=== PATIENT | male | born 1950 | race Caucasian/White ===

== ENCOUNTER → 2023-12-29 10:06 | Outpatient (REF) | payer OTHER, SELFPAY | LOC: RCS 10:06 | PROVIDERS: ATTENDING PHYSICIAN Internal Medicine Cardiovascular Disease; FAMILY PHYSICIAN Family Medicine | DX: I35.0 Nonrheumatic aortic (valve) stenosis (principal) | CPT/HCPCS: 93306 ==

== ENCOUNTER → 2024-05-13 15:06 | Outpatient (REF) | payer OTHER, SELFPAY | LOC: RAD 15:06 | PROVIDERS: ATTENDING PHYSICIAN Internal Medicine Cardiovascular Disease; FAMILY PHYSICIAN Family Medicine | DX: I65.23 Occlusion and stenosis of bilateral carotid arteries (principal) | CPT/HCPCS: 93880 ==

== ENCOUNTER → 2024-07-05 10:33 | Outpatient (REF) | payer OTHER, SELFPAY | LOC: RCS 10:33 | PROVIDERS: ATTENDING PHYSICIAN Internal Medicine Cardiovascular Disease; FAMILY PHYSICIAN Family Medicine; REFERRING PHYSICIAN Family Medicine | DX: I35.0 Nonrheumatic aortic (valve) stenosis (principal) | CPT/HCPCS: 93306 ==

== ENCOUNTER 2024-11-20 16:52 | Outpatient (RCR) | payer OTHER, SELFPAY | END 2024-11-20 23:59 | disposition home or self-care (01) | LOC: CRHB 16:52 | PROVIDERS: ATTENDING PHYSICIAN Internal Medicine Cardiovascular Disease | DX: Z95.2 Presence of prosthetic heart valve (principal) | CPT/HCPCS: 93306; 93797; 93798 ==

== ENCOUNTER 2024-12-20 16:15 | Outpatient (RCR) | payer OTHER, SELFPAY | END 2024-12-20 23:59 | disposition home or self-care (01) | LOC: CRHB 16:15 | PROVIDERS: ATTENDING PHYSICIAN Internal Medicine Cardiovascular Disease | DX: Z95.2 Presence of prosthetic heart valve (principal) | CPT/HCPCS: 93797; 93798 ==

== ENCOUNTER 2024-12-27 01:53 | Emergency (ER) | payer OTHER, SELFPAY ==
[2024-12-27 01:57] VITALS: BP 103/66
[2024-12-27 02:28] LABS: % Basophils 0.1 % (0-2); % Eosinophils 1.8 % (0-6); % Immature Granulocytes 0.3 % (0-0.5); % Lymphocytes 13.9 % (20.5-51.1); % Monocytes 11.1 % (1.7-9.3); % Neutrophils 72.8 % (42.2-75.2); Absolute Eosinophils 0.1 10^3/uL (0-0.7); Absolute Lymphocytes 1.1 10^3/uL (1.2-3.4); Absolute Monocytes 0.8 10^3/uL (0.1-0.6); Absolute Neutrophils 5.5 10^3/uL (1.4-6.5); Hematocrit 38.4 % (39.0-52.0); Mean Corp Hgb Conc. 33.9 g/dL (33.0-37.0); Mean Corpuscular Hgb 31.7 pg (27.0-31.0); Mean Corpuscular Volume 93.7 fL (80.0-94.0); Mean Platelet Volume 9.7 fL (7.4-10.4); Nucleated Red Blood Cells % 0 % (-); Platelet Count 169 10^3/uL (130-400); Red Cell Dist. Width 13.6 % (11.5-14.5); White Blood Cell Count 7.6 10^3/uL (4.8-10.8)
[2024-12-27 02:50] LABS: ALT (SGPT) 15 U/L (0-50); AST (SGOT) 18 U/L (17-59); Albumin 4.1 g/dl (3.5-5.0); Alkaline Phosphatase 73 U/L (38-126); Blood Urea Nitrogen 23 mg/dl (9-20); Calcium 9.9 mg/dl (8.4-10.2); Carbon Dioxide 23 mmol/L (22-30); Chloride 111 mmol/L (98-107); Glucose 152 mg/dl (70-99); Potassium 4.1 mmol/L (3.5-5.1); Sodium 141 mmol/L (135-145); Total Bilirubin 0.5 mg/dl (0.2-1.3); Total Protein 6.7 g/dl (6.3-8.2); eGFR > 60.00
[2024-12-27 03:03] LABS: Troponin I < 0.012 ng/ml
--- NOTE | 2024-12-27 04:19 | ED.GENMED ---
History of Present Illness
General
Chief Complaint: Chest Pain
Source: patient
Exam Limitations: none
Time Seen by Provider: 12/27/24 04:14
Nursing documentation reviewed up to this point in time: agreed with
History of Present Illness
History of Present Illness:
74-year-old male presents to the emergency department with left-sided chest pain that began 2 days ago. He states that he also has associated shortness of breath. Patient denies any other chest pain. He states that he was traveling approximately
3 hours by car when he first developed the pain and dyspnea. Denies previous similar symptoms. Reports no fever or chills. Denies any upper chest pain. Denies abdominal pain. Patient states that the left-sided chest pain is intermittent in
nature. Patient states that the pain radiates to his left shoulder. Patient had valve replacement in September. He also had a incidental finding of a kidney tumor. Was followed at [facility] and told that for the time being they were not going to
operate. He has a follow-up appointment with oncology in March.
Past History
Past History
ED Past Medical History: CAD, GERD, HTN, Hypercholesterolemia, Valvular disease (Aortic stenosis), Psychiatric and Other
ED Past Surgical History: Orthopedic and Urological
Social History
Tobacco: Former smoker
Alcohol: Occasional
Drug: None
Personal:
Living: with family
Employment: Employed
Family History
Family History: Other (Mother with diabetes father with coronary disease and diabetes)
Review of Systems
Review of Systems
Allergies reviewed?: Yes
All Other Systems: ROS reviewed and negative except as documented in HPI and ROS
Constitutional: Reports no symptoms
EENT: Reports no symptoms
Respiratory: Reports trouble breathing
Cardiac: Reports chest pain
ABD/GI: Reports no symptoms
: Reports no symptoms
Musculoskeletal: Reports no symptoms
Skin: Reports no symptoms
Neurological: Reports no symptoms
Endocrine: Reports no symptoms
Hematologic/Lymphatic: Reports no symptoms
Psychiatric: Reports no symptoms
Phy Exam
General Physical Exam
General Presentation: well appearing and no apparent distress
General Skin: warm and dry
General Habitus: normal
General Mental: alert
General Hydration: appears well hydrated
ENT Exam
ENT Exam: EOMI, pharynx normal, neck supple and normocephalic
Eye Exam
Eye Exam: PERRL, cornea clear and conjunctiva normal
Cardiovascular Exam
Cardiovascular Exam: regular rate/rhythm, no edema, no murmur and normal peripheral pulses
Pulmonary Exam
Pulmonary Exam: lungs clear, no respiratory distress, no rales, no crackles, no rhonchi, no stridor, no wheezing and no cough
Gastrointestinal Exam
Gastrointestinal Exam: normal bowel sounds, non tender, soft, no organomegaly, no pulsatile mass and non distended
Neurological Exam
Neurological Exam: alert, oriented x3, no motor deficits and speech normal
Musculoskeletal Exam
Musculoskeletal Exam: full ROM and no edema
Skin Exam
Skin Exam: normal color, warm/dry, no rash and no petechia
Psychiatric Exam
Psychiatric Exam: normal mood/affect
Scores
Heart Score for Chest Pain Patients
STEMI patient?: Not applicable
Course
Orders/Labs/Results
Orders:
Orders
12/27/24 01:54
EKG [Electrocardiogram (*1)] Urgent
Reason for Study: Chest Pain
EKG- Treatment ONCE
12/27/24 02:15
Complete Blood Count/With Diff Urgent
Comprehensive Metabolic Panel Urgent
Troponin I Urgent
12/27/24 04:31
CT Chest PE Study Urgent
Comment:
Reason For Exam: lefft cp, dyspnea
12/27/24 04:41
NT-proBNP Urgent
Comment: ADDED
Troponin I Urgent
Abnormal Lab Results
12/27/24
02:15
RBC 4.10 L 10^6/uL
(4.70-6.10)
Hct 38.4 L %
(39.0-52.0)
MCH 31.7 H pg
(27.0-31.0)
Absolute Lymphs (auto) 1.1 L 10^3/uL
(1.2-3.4)
Absolute Monos (auto) 0.8 H 10^3/uL
(0.1-0.6)
Lymphocytes % 13.9 L %
(20.5-51.1)
Monocytes % 11.1 H %
(1.7-9.3)
Chloride 111 H mmol/L
(98-107)
BUN 23 H mg/dl
(9-20)
Glucose 152 H mg/dl
(70-99)
12/27/24 02:15
12/27/24 02:15
Vital Signs
Initial and Last Documented VS:
Initial Vital Signs
Temp Pulse Resp BP Pulse Ox
98.5 F 94 16 103/66 94
12/27/24 01:57 12/27/24 01:57 12/27/24 01:57 12/27/24 01:57 12/27/24 01:57
Last Documented Vital Signs
Temp Pulse Resp BP Pulse Ox
98.5 F 82 16 136/81 99
12/27/24 06:54 12/27/24 06:54 12/27/24 06:54 12/27/24 06:54 12/27/24 06:54
*EKG
Interpreted by ED Provider?: Yes
Interpretation: normal
Heart Rate: 92
Rate: normal
Rhythm: sinus
[place]: normal axis
Interval: normal interval
QRS Pattern: normal QRS
Ischemia: no ischemia
*Critical Care Note
Total Time (30-74mins, 75-104mins- exclusive of procedures): Not Applicable
Update Note
Update Note:
NAME: DANIE BANG
DATE OF EXAM: 12/27/2024
Patient No: [id number]
Physician: ESPERANZA^Isabella
Date of : 1950
Past Medical History (entered by Technologist):
Reason For Exam (entered by Technologist):
Other Notes (entered by Technologist): Chest pain, lt shoulder pain
Additional Information (per [facility] Radiologist): Chest and left shoulder pain
CTA chest
IMPRESSION:
No evidence of PE or acute aortic pathology
Pulmonary artery contrast opacification is adequate though not excellent with minimal motion unsharpness further degrading exam sensitivity for small PE
Small left pleural effusion, in the setting of pleuritic left-sided chest pain consider pleurisy
As precaution correlate with BNP to exclude signs of fluid overload
Small pericardial effusion
No acute process limited upper abdomen
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
Mild airway debris along the left side of the trachea series 404 image 47
Results transmitted at 5:59 AM Eastern time
ED Attending Note
-
Portions of this chart may have been created with voice recognition software.� Occasional wrong word or��sound alike� substitutions may have occurred due to the inherent limitations of voice recognition software.
Discharge Plan
Departure
Patient Disposition: Home (Routine Discharge)
Date of Disposition: 12/27/24
Time of Disposition: 06:44
Patient with high blood pressure during this ER visit?: Yes
Discharge Problem:
Pleurisy, Chest pain
Instructions: Chest Pain NON-[facility] Delivery Director Follow Up, Pleurisy
Prescriptions:
New
diclofenac sodium 75 mg tablet,delayed release (DR/EC)
75 mg PO BID Qty: 10 0RF
No Action
yerdcjhv-subo-qvcdss-hyalur ac 1 CAP capsule
2 cap PO DAILY
alprazolam 0.25 MG tablet
0.25 mg PO Q8HPRN PRN (Reason: ANXIETY)
Patient Comments:
07/06/2023: last filled 06/27/23, 30 tabs for 10 days from [facility]
Centrum Silver 1 EACH tablet
1 ea PO DAILY
coenzyme Z10-[id number] E [Co Q-10 (with Vit E)] 1 EACH capsule
1 ea PO DAILY
pantoprazole 40 MG tablet,delayed release (DR/EC)
40 mg PO DAILY Qty: 30 11RF
Rx Instructions:
Protonix replaces Nexium
aspirin 81 MG tablet,chewable
81 mg PO DAILY Qty: 30 0RF
Rx Instructions:
Reduce aspirin to 81 mg daily
lisinopril 5 MG tablet
2.5 mg PO HS
hydrocodone-acetaminophen 5-325 mg tablet
0.5 tab PO TID
Patient Comments:
07/06/2023: last filled 06/12/23, 45 tabs for 30 days from [facility]
dqlcaxlwgv-dedcivchpofqf-coiq 50-325-40 mg tablet
1 tab PO Q4H PRN (Reason: headache)
Patient Comments:
07/06/2023: last filled 06/27/23, 30 tabs for 5 days from [facility]
ezetimibe 10 mg tablet
10 mg PO HS
pregabalin 75 mg capsule
75 mg PO DAILY@1700
Patient Comments:
07/06/2023: last filled 06/26/23, 90 tabs for 30 days from [facility]
Rx Instructions:
Pt is tapering off
omega 6-cfg-bpj-fish oil [Fish Oil] 1,200 (144-216) mg Capsule
1 cap PO DAILY
vilazodone 20 mg tablet
20 mg PO DAILY@1700
atorvastatin 80 MG tablet
80 mg PO HS
Pulmicort Flexhaler 90 mcg/actuation aerosol powdr breath activated
1 inh inhalation Q12H Qty: 1 0RF
hydrocodone-acetaminophen 5-325 mg tablet
1 tab PO Q8H PRN (Reason: Pain) Qty: 10 0RF
Referrals:
Mariza Escobar, DO [Family Provider, Family Practice]
Interventions
Interventions:
*Risk Screen - Suicide Last Done: 12/27/24 01:57
*General Assessment Last Done: 12/27/24 06:54
*Neglect/Abuse Screening Last Done: 12/27/24 01:57
*ED- Fall Risk Assessment Last Done: 12/27/24 01:57
*ED COVID-19 Vaccine History Last Done: 12/27/24 01:57
*Nursing Disposition Last Done: 12/27/24 06:54
ED- Cardiac Assessment Last Done: 12/27/24 03:30
Discharge Date and Time
Discharge Date/Time: 12/27/24 06:58
Print Language: SLOVAK
[2024-12-27 05:25] LABS: Troponin I < 0.012 ng/ml
[2024-12-27 06:54] VITALS: BP 136/81
[2024-12-27 06:55] LABS: NT-proBNP 246 pg/ml
== END 2024-12-27 06:58 | disposition home or self-care (01) ==
LOC: EMR 01:53
PROVIDERS: EMERGENCY PHYSICIAN Student in an Organized Health Care Education/Training Program; FAMILY PHYSICIAN Family Medicine
DX: R09.1 Pleurisy (principal); R07.89 Other chest pain; I25.10 Atherosclerotic heart disease of native coronary artery without angina pectoris; K21.9 Gastro-esophageal reflux disease without esophagitis; E78.00 Pure hypercholesterolemia, unspecified; I10 Essential (primary) hypertension; I35.0 Nonrheumatic aortic (valve) stenosis; Z82.49 Family history of ischemic heart disease and other diseases of the circulatory system; Z83.3 Family history of diabetes mellitus; Z87.891 Personal history of nicotine dependence; Z95.2 Presence of prosthetic heart valve; Z95.5 Presence of coronary angioplasty implant and graft
CPT/HCPCS: 99284; 71275; 80053; 83880; 84484; 85025; 93005; Q9967

== ENCOUNTER 2025-01-20 16:47 | Outpatient (RCR) | payer OTHER, SELFPAY | END 2025-01-20 23:59 | disposition home or self-care (01) | LOC: CRHB 16:47 | PROVIDERS: ATTENDING PHYSICIAN Internal Medicine Cardiovascular Disease; FAMILY PHYSICIAN Family Medicine | DX: Z95.2 Presence of prosthetic heart valve (principal) | CPT/HCPCS: 93797; 93798 ==

== ENCOUNTER 2025-01-27 16:20 | Outpatient (RCR) | payer OTHER, SELFPAY | END 2025-01-27 17:33 | disposition home or self-care (01) | LOC: CRHB 16:20 | PROVIDERS: ATTENDING PHYSICIAN Internal Medicine Cardiovascular Disease | DX: Z95.3 Presence of xenogenic heart valve (principal); I48.91 Unspecified atrial fibrillation | CPT/HCPCS: 93797; 93798 ==

== ENCOUNTER 2025-02-08 20:34 | Emergency (ER) | payer OTHER, SELFPAY ==
[2025-02-08 20:49] VITALS: BP 130/88
[2025-02-08 21:30] LABS: ALT (SGPT) 21 U/L (0-50); AST (SGOT) 22 U/L (17-59); Albumin 4.3 g/dl (3.5-5.0); Alkaline Phosphatase 65 U/L (38-126); Blood Urea Nitrogen 36 mg/dl (9-20); Calcium 9.6 mg/dl (8.4-10.2); Carbon Dioxide 27 mmol/L (22-30); Chloride 105 mmol/L (98-107); Glucose 92 mg/dl (70-99); Potassium 4.5 mmol/L (3.5-5.1); Sodium 136 mmol/L (135-145); Total Protein 7.1 g/dl (6.3-8.2); eGFR 58.01
[2025-02-08 21:55] LABS: Hematocrit 38.4 % (39.0-52.0); Hemoglobin 12.9 g/dL (13.0-18.0); Mean Corp Hgb Conc. 33.6 g/dL (33.0-37.0); Mean Corpuscular Volume 93.2 fL (80.0-94.0); Nucleated Red Blood Cells % 0 % (-); Platelet Count 157 10^3/uL (130-400); Red Cell Dist. Width 15.0 % (11.5-14.5)
[2025-02-08 22:43] VITALS: BP 150/89; BMI 33.0
[2025-02-08 23:00] VITALS: BP 144/91
[2025-02-09] MEDS: REGLAN 10 MG IV (00:13)
[2025-02-09] MEDS: PEPCID 20 MG IV (00:13)
[2025-02-09 00:40] LABS: Magnesium 2.1 mg/dl (1.6-2.3)
[2025-02-09 00:57] LABS: Troponin I < 0.012 ng/ml
[2025-02-09] MEDS: TYLENOL 1000 MG PO (00:57)
[2025-02-09 01:00] VITALS: BP 139/91
--- NOTE | 2025-02-09 01:46 | ED.GENMED ---
History of Present Illness
General
Chief Complaint: Headache
Source: patient and spouse
Exam Limitations: none
Time Seen by Provider: 02/08/25 22:43
Nursing documentation reviewed up to this point in time: agreed with
History of Present Illness
History of Present Illness:
74-year-old male past medical history of aortic stenosis, CAD, GERD presenting to the emergency department today with concerns of headache fatigue over the past 2 weeks or so. Denies any rashes any specific upper respiratory symptoms no specific
chest pain or shortness of breath. No leg swelling no nausea vomiting. Denies any numbness or weakness.
Past History
Past History
ED Past Medical History: CAD, GERD, HTN, Hypercholesterolemia, Valvular disease (Aortic stenosis), Psychiatric and Other
ED Past Surgical History: Orthopedic and Urological
Social History
Tobacco: Former smoker
Alcohol: Occasional
Drug: None
Personal:
Living: with family
Employment: Employed
Family History
Family History: Other (Mother with diabetes father with coronary disease and diabetes)
Review of Systems
Review of Systems
Allergies reviewed?: Yes
All Other Systems: ROS reviewed and negative except as documented in HPI and ROS
Phy Exam
Physical Exam
Physical Exam:
GENERAL: Alert , in no apparent distress
EYE: pupils equal and reactive
NECK: Supple, no significant adenopathy.
ENT: o/p clr, mmm.
CARDIAC: Regular rate and rhythm .
LUNGS: Clear breath sounds bilaterally, no acute respiratory distress, no wheezes/rales/rhonchi
ABDOMEN: Soft, without focal tenderness, no r/g, no cvat
NEUROLOGICAL: Alert and oriented, no focal neuro deficits
SKIN: Warm and dry, skin intact.
MUSCULOSKELETAL: No edema, well perfused.
PSYCH: Normal and appropriate interaction.
Course
Orders/Labs/Results
Orders:
Orders
02/08/25 20:54
EKG [Electrocardiogram (*1)] Urgent
Reason for Study: Fatigue / Weakness
02/08/25 20:[address] [CT Head W/o Iv Contrast] Urgent
Comment:
Reason For Exam: headache
EKG- Treatment ONCE
02/08/25 21:06
Complete Blood Count/With Diff Urgent
Comprehensive Metabolic Panel Urgent
Lyme Progressive Urgent
Comment: ADD ON
Magnesium Urgent
Comment: ADD ON
TSH Reflex To Free T4 Urgent
Comment: ADD ON
02/08/25 23:13
Add On- LAB Urgent
Tests Added?: Lyme progressive
02/09/25 00:06
Famotidine [Pepcid] 20 mg IV NOW STA
Metoclopramide [Reglan] 10 mg IV NOW STA
Chest [CR Chest - 2 Views ] Urgent
Comment:
Reason For Exam: sob
02/09/25 00:07
Add On- LAB Urgent
Tests Added?: magnesium, tsh free t4
02/09/25 00:19
BNP [NT-proBNP] Urgent
Troponin I Urgent
02/09/25 00:56
Acetaminophen [Tylenol] 1,000 mg .ROUTE .STK-MED ONE
02/09/25 00:57
Acetaminophen [Tylenol] 1,000 mg PO NOW STA
Abnormal Lab Results
02/08/25
21:06
RBC 4.12 L 10^6/uL
(4.70-6.10)
Hgb 12.9 L g/dL
(13.0-18.0)
Hct 38.4 L %
(39.0-52.0)
MCH 31.3 H pg
(27.0-31.0)
RDW 15.0 H %
(11.5-14.5)
Absolute Monos (auto) 0.7 H 10^3/uL
(0.1-0.6)
Monocytes % 9.6 H %
(1.7-9.3)
BUN 36 H mg/dl
(9-20)
02/08/25 21:06
02/08/25 21:06
Vital Signs
Initial and Last Documented VS:
Initial Vital Signs
Temp Pulse Resp BP Pulse Ox
98.4 F 77 18 130/88 95
02/08/25 20:49 02/08/25 20:49 02/08/25 20:49 02/08/25 20:49 02/08/25 20:49
Last Documented Vital Signs
Temp Pulse Resp BP Pulse Ox
98.4 F 73 14 144/91 97
02/08/25 20:49 02/09/25 00:54 02/09/25 00:54 02/08/25 23:00 02/09/25 00:15
MDM/Problems Addressed
MDM/Problems Addressed:
74-year-old male presenting to the emergency department today with concerns of generalized weakness fatigue and headache over the past 2 weeks. Normal neurologic evaluation on arrival normal vital signs EKG without emergent findings head CT
negative labs unremarkable troponin negative. No signs of any emergent process patient generally well-appearing no signs of decompensated heart failure advised for close outpatient follow-up otherwise return precautions given.
*Pulse Oximetry
SaO2: 97
Oxygen Mode of Delivery: Room air
Patient hypoxic: no (97)
*Critical Care Note
Total Time (30-74mins, 75-104mins- exclusive of procedures): Not Applicable
ED Attending Note
-
Portions of this chart may have been created with voice recognition software.� Occasional wrong word or��sound alike� substitutions may have occurred due to the inherent limitations of voice recognition software.
Discharge Plan
Departure
Patient Disposition: Home (Routine Discharge)
Date of Disposition: 02/09/25
Time of Disposition: 01:48
Patient with high blood pressure during this ER visit?: No
Condition: Good
Covid-19: Not Applicable
Discharge Problem:
Headache, Fatigue
Instructions: Headache, Adult (DC), *DCA Heart Failure Instructions
Prescriptions:
No Action
ccpftyhk-grqe-eexawh-hyalur ac 1 CAP capsule
2 cap PO DAILY
alprazolam 0.25 MG tablet
0.25 mg PO Q8HPRN PRN (Reason: ANXIETY)
Patient Comments:
07/06/2023: last filled 06/27/23, 30 tabs for 10 days from [facility]
Centrum Silver 1 EACH tablet
1 ea PO DAILY
coenzyme T02-mhbyctx E [Co Q-10 (with Vit E)] 1 EACH capsule
1 ea PO DAILY
pantoprazole 40 MG tablet,delayed release (DR/EC)
40 mg PO DAILY Qty: 30 11RF
Rx Instructions:
Protonix replaces Nexium
aspirin 81 MG tablet,chewable
81 mg PO DAILY Qty: 30 0RF
Rx Instructions:
Reduce aspirin to 81 mg daily
lisinopril 5 MG tablet
2.5 mg PO HS
hydrocodone-acetaminophen 5-325 mg tablet
0.5 tab PO TID
Patient Comments:
07/06/2023: last filled 06/12/23, 45 tabs for 30 days from [facility]
jlclgjyfdc-vcgyugbcgmtze-dgwr 50-325-40 mg tablet
1 tab PO Q4H PRN (Reason: headache)
Patient Comments:
07/06/2023: last filled 06/27/23, 30 tabs for 5 days from [facility]
ezetimibe 10 mg tablet
10 mg PO HS
pregabalin 75 mg capsule
75 mg PO DAILY@1700
Patient Comments:
07/06/2023: last filled 06/26/23, 90 tabs for 30 days from [facility]
Rx Instructions:
Pt is tapering off
omega 1-pfh-oly-fish oil [Fish Oil] 1,200 (144-216) mg Capsule
1 cap PO DAILY
vilazodone 20 mg tablet
20 mg PO DAILY@1700
atorvastatin 80 MG tablet
80 mg PO HS
Pulmicort Flexhaler 90 mcg/actuation aerosol powdr breath activated
1 inh inhalation Q12H Qty: 1 0RF
hydrocodone-acetaminophen 5-325 mg tablet
1 tab PO Q8H PRN (Reason: Pain) Qty: 10 0RF
diclofenac sodium 75 mg tablet,delayed release (DR/EC)
75 mg PO BID Qty: 10 0RF
Referrals:
Mariza Escobar DO [Family Provider, Family Practice]
Activity Restrictions/Additional Instructions:
You came to the emergency department today with concerns of headache and fatigue over the past few weeks. Here you had a reassuring assessment. Please follow closely as an outpatient. Return for any worsening, new or concerning symptoms.
Interventions
Interventions:
*Risk Screen - Suicide Last Done: 02/08/25 20:49
*General Assessment Last Done: 02/08/25 20:49
*ED- Fall Risk Assessment Last Done: 02/08/25 20:49
*ED COVID-19 Vaccine History Last Done: 02/08/25 20:49
ED- Neurological Assessment Last Done: 02/08/25 22:44
Discharge Date and Time
Print Language: KAZAKH
[2025-02-09 02:00] VITALS: BP 143/84
[2025-02-09 02:20] VITALS: BP 143/84
== END 2025-02-09 02:21 | disposition home or self-care (01) ==
LOC: EMR 20:34
PROVIDERS: Emergency Medicine; Physician Assistant; EMERGENCY PHYSICIAN Emergency Medicine; FAMILY PHYSICIAN Family Medicine
DX: R51.9 Headache, unspecified (principal); R53.1 Weakness; R53.83 Other fatigue; I35.0 Nonrheumatic aortic (valve) stenosis; I25.10 Atherosclerotic heart disease of native coronary artery without angina pectoris; I10 Essential (primary) hypertension; E78.00 Pure hypercholesterolemia, unspecified; K21.9 Gastro-esophageal reflux disease without esophagitis; Z79.82 Long term (current) use of aspirin; Z85.528 Personal history of other malignant neoplasm of kidney; Z87.442 Personal history of urinary calculi; Z87.891 Personal history of nicotine dependence; Z88.2 Allergy status to sulfonamides; Z88.8 Allergy status to other drugs, medicaments and biological substances
CPT/HCPCS: 99285; 96374; 96375; 70450; 71046; 80053; 83735; 83880; 84443; 84484; 85025; 86618; 93005

== ENCOUNTER 2025-03-24 17:05 | Emergency (ER) | payer OTHER, SELFPAY ==
[2025-03-24 17:13] VITALS: BP 113/70
--- NOTE | 2025-03-24 19:25 | ED.GENMED ---
History of Present Illness
General
Chief Complaint: Chest Problem
Source: patient and spouse
Time Seen by Provider: 03/24/25 18:58
History of Present Illness
History of Present Illness:
This patient is a 74-year-old male whose had persistent symptoms for the last 2 months concurrent with his diagnosis of Lyme disease. He describes persistent headaches, fatigue, intermittent nausea, and generally feeling not well. He has seen his
primary care doctor in follow-up, and completed 28-day course of doxycycline approximately 2 weeks ago. He had subsequent testing including parasite smear, additional tickborne illness testing, mono testing, 'autoimmune disease testing, all of
which were unremarkable. Of note, patient has a history of kidney cancer which is considered slow-growing and he is due to have extracted in June. He presents today because he developed discomfort along the left side of his lower chest and
also across his back on Monday morning. This is not sudden in onset, and is extremely similar to when he was diagnosed with 'pleurisy' in the past. He says that his exactly the same. He does not feel breathless or short of breath, feverish,
diaphoretic, dizzy. He denies chest pressure. He denies hemoptysis or leg swelling. Patient has had a recent URI.
Past History
Past History
ED Past Medical History: CAD, GERD, HTN, Hypercholesterolemia, Valvular disease (Aortic stenosis), Psychiatric and Other (Lyme disease)
ED Past Surgical History: Cardiac, Orthopedic and Urological
Social History
Tobacco: Former smoker
Alcohol: Occasional
Drug: None
Personal:
Living: with family
Employment: Employed
Family History
Family History: Other (Mother with diabetes father with coronary disease and diabetes)
Phy Exam
Physical Exam
Physical Exam:
GENERAL: Alert , in no apparent distress
EYE: pupils equal and reactive
NECK: Supple, no significant adenopathy.
ENT: o/p clr, mmm.
CARDIAC: Regular rate and rhythm .
LUNGS: Clear breath sounds bilaterally, no acute respiratory distress, no wheezes/rales/rhonchi
ABDOMEN: Soft, without focal tenderness, no r/g, no cvat
NEUROLOGICAL: Alert and oriented, no focal neuro deficits
SKIN: Warm and dry, skin intact.
MUSCULOSKELETAL: No edema, well perfused.
PSYCH: Normal and appropriate interaction.
Course
Orders/Labs/Results
Orders:
Orders
03/24/25 17:06
ECG [Electrocardiogram (*1)] Urgent
Reason for Study: Chest Pain
EKG- Treatment ONCE
03/24/25 19:24
0.9% Sodium Chloride 500 ml [Nss] 500 ml IV 500 mls/hr
03/24/25 19:25
Cardiac Monitoring- Treatment ONCE
03/24/25 19:33
Complete Blood Count/No Diff Urgent
Comprehensive Metabolic Panel Urgent
D-Dimer Urgent
Troponin I Urgent
03/24/25 19:47
Ketorolac [Toradol] 15 mg IV NOW STA
03/24/25 20:28
CT Chest PE Study Urgent
Comment:
Reason For Exam: l sdied pain
Abnormal Lab Results
03/24/25
19:33
RBC 4.10 L 10^6/uL
(4.70-6.10)
MCV 95.1 H fL
(80.0-94.0)
MCH 32.2 H pg
(27.0-31.0)
RDW 15.6 H %
(11.5-14.5)
D-Dimer 2.69 H ug/mlFEU
(0.00-0.50)
Chloride 108 H mmol/L
(98-107)
BUN 25 H mg/dl
(9-20)
Glucose 108 H mg/dl
(70-99)
03/24/25 19:33
03/24/25 19:33
Vital Signs
Initial and Last Documented VS:
Initial Vital Signs
Temp Pulse Resp BP Pulse Ox
98.6 F 105 16 113/70 96
03/24/25 17:13 03/24/25 17:13 03/24/25 17:13 03/24/25 17:13 03/24/25 17:13
Last Documented Vital Signs
Temp Pulse Resp BP Pulse Ox
98.6 F 93 16 145/88 95
03/24/25 17:13 03/24/25 21:15 03/24/25 21:15 03/24/25 21:11 03/24/25 21:15
*Pulse Oximetry
SaO2: 98
Oxygen Mode of Delivery: Room air
Patient hypoxic: no
*Critical Care Note
Total Time (30-74mins, 75-104mins- exclusive of procedures): Not Applicable
Update Note
Update Note:
Patient presents to the Emergency Department with ___multiple complaints for the last 2 months but most recently 2 to 3 days of pleuritic left-sided chest and back pain
Number and Complexity of Problems Addressed at the Encounter
� Chronic conditions affecting care:
� Acute Exacerbation and/or Progression of Chronic Illness:
� Differential Diagnosis includes: But not limited to musculoskeletal pain, PE, pleurisy, pneumonia, etc. etc.
Amount and/or Complexity of Data to be Reviewed and Analyzed
� I performed an independent evaluation of and my interpretation is:
EKG: Read by me, sinus tachycardia, normal axis, normal intervals, no acute ischemia
CT:. No evidence of central or segmental pulmonary embolism.
2. Small pericardial effusion which is new from recent prior imported CT.
3. Trace left pleural effusion with left basilar atelectasis.
Xrays:
Laboratory Studies: Elevated D-dimer which prompted CAT scan to rule out PE. Normal white blood cell count hemoglobin and platelets, troponin within normal limits
Other:
� Review of other/old records reveals:
� Clinical information was obtained by an independent historian:
� Prescriptions/Medications Considered but not given:
� Further testing considered but not performed:
Risk of Complications and/or Morbidity or Mortality of Patient Management
� Social determinants of health affecting care:
� Discussion with other providers (PCP, Hospitalists, Consultants, etc):
� Escalation of care including admission/observation vs risk of discharge considered: Long discussion with patient and patient remains comfortable here and in fact took a nap. Clinically highly suspect pleurisy as a cause
of his symptoms given no PE seen, no pneumonia, significant pleural effusion, etc. etc. Patient has had other symptoms that have been more longstanding for the last 2 months and is unclear if the small pericardial effusion and pleural effusion are
related or not. He is trying to get follow-up with infectious disease and I gave him our contact information for that. I also gave him a copy of his CAT scan with recommendation to bring this to his appointment for follow-up
ED Attending Note
-
Portions of this chart may have been created with voice recognition software.� Occasional wrong word or��sound alike� substitutions may have occurred due to the inherent limitations of voice recognition software.
Discharge Plan
Departure
Patient Disposition: Home (Routine Discharge)
Date of Disposition: 03/24/25
Time of Disposition: 22:18
Patient with high blood pressure during this ER visit?: Yes
Condition: Good
Discharge Problem:
Pleurisy
Instructions: BLOOD PRESSURE, Pleurisy
Prescriptions:
No Action
xvaqaktr-tehj-pzospb-hyalur ac 1 CAP capsule
2 cap PO DAILY
alprazolam 0.25 MG tablet
0.25 mg PO Q8HPRN PRN (Reason: ANXIETY)
Patient Comments:
07/06/2023: last filled 06/27/23, 30 tabs for 10 days from [facility]
Centrum Silver 1 EACH tablet
1 ea PO DAILY
coenzyme [id number] E [Co Q-10 (with Vit E)] 1 EACH capsule
1 ea PO DAILY
pantoprazole 40 MG tablet,delayed release (DR/EC)
40 mg PO DAILY Qty: 30 11RF
Rx Instructions:
Protonix replaces Nexium
aspirin 81 MG tablet,chewable
81 mg PO DAILY Qty: 30 0RF
Rx Instructions:
Reduce aspirin to 81 mg daily
lisinopril 5 MG tablet
2.5 mg PO HS
hydrocodone-acetaminophen 5-325 mg tablet
0.5 tab PO TID
Patient Comments:
07/06/2023: last filled 06/12/23, 45 tabs for 30 days from [facility]
vtwtbywcuq-coknfmbaetafa-dgob 50-325-40 mg tablet
1 tab PO Q4H PRN (Reason: headache)
Patient Comments:
07/06/2023: last filled 06/27/23, 30 tabs for 5 days from [facility]
ezetimibe 10 mg tablet
10 mg PO HS
pregabalin 75 mg capsule
75 mg PO DAILY@1700
Patient Comments:
07/06/2023: last filled 06/26/23, 90 tabs for 30 days from [facility]
Rx Instructions:
Pt is tapering off
omega 0-suo-ttn-fish oil [Fish Oil] 1,200 (144-216) mg Capsule
1 cap PO DAILY
vilazodone 20 mg tablet
20 mg PO DAILY@1700
atorvastatin 80 MG tablet
80 mg PO HS
Pulmicort Flexhaler 90 mcg/actuation aerosol powdr breath activated
1 inh inhalation Q12H Qty: 1 0RF
hydrocodone-acetaminophen 5-325 mg tablet
1 tab PO Q8H PRN (Reason: Pain) Qty: 10 0RF
diclofenac sodium 75 mg tablet,delayed release (DR/EC)
75 mg PO BID Qty: 10 0RF
doxycycline hyclate 100 mg capsule
100 mg PO BID 10 Days Qty: 20 0RF
Referrals:
[facility], [Other]
Geoffrey Back DO [Active, Infectious Diseases] - Next open appointment
Mariza Escobar DO [Family Provider, Family Practice]
Activity Restrictions/Additional Instructions:
PLEASE TAKE ANTI-INFLAMMATORY MEDICATIONS WITH CAUTION DIRECTED. IF YOU DEVELOP INCREASING NEW OR PERSISTENT PAIN, ANY TROUBLE BREATHING, FEVER, VOMITING, OR OTHER WORRISOME SIGNS, PLEASE RETURN TO THE ER IMMEDIATELY EXCLAMATION
Interventions
Interventions:
*Risk Screen - Suicide Last Done: 03/24/25 17:13
*General Assessment Last Done: 03/24/25 19:09
*Neglect/Abuse Screening Last Done: 03/24/25 17:13
*ED- Fall Risk Assessment Last Done: 03/24/25 19:09
*ED COVID-19 Vaccine History Last Done: 03/24/25 19:09
ED- Cardiac Assessment Last Done: 03/24/25 19:09
ED- Pulmonary Assessment Last Done: 03/24/25 19:09
Discharge Date and Time
Print Language: EGYPTIAN
[2025-03-24] MEDS: NSS 500 IV (19:31)
[2025-03-24 19:47] LABS: Hematocrit 39.0 % (39.0-52.0); Hemoglobin 13.2 g/dL (13.0-18.0); Mean Corp Hgb Conc. 33.8 g/dL (33.0-37.0); Mean Corpuscular Volume 95.1 fL (80.0-94.0); Platelet Count 170 10^3/uL (130-400); Red Cell Dist. Width 15.6 % (11.5-14.5)
[2025-03-24 20:01] LABS: D-Dimer 2.69 ug/mlFEU (0.00-0.50)
[2025-03-24] MEDS: TORADOL 15 MG IV (20:01)
[2025-03-24 20:11] LABS: Troponin I < 0.012 ng/ml
[2025-03-24 20:17] LABS: ALT (SGPT) 21 U/L (0-50); AST (SGOT) 27 U/L (17-59); Albumin 4.0 g/dl (3.5-5.0); Alkaline Phosphatase 68 U/L (38-126); Blood Urea Nitrogen 25 mg/dl (9-20); Calcium 9.6 mg/dl (8.4-10.2); Carbon Dioxide 24 mmol/L (22-30); Chloride 108 mmol/L (98-107); Glucose 108 mg/dl (70-99); Potassium 4.8 mmol/L (3.5-5.1); Sodium 137 mmol/L (135-145); Total Protein 6.8 g/dl (6.3-8.2); eGFR > 60.00
[2025-03-24 21:11] VITALS: BP 145/88
[2025-03-24 22:00] VITALS: BP 115/67
[2025-03-24 22:55] VITALS: BP 136/88
== END 2025-03-24 23:00 | disposition home or self-care (01) ==
LOC: EMR 17:05
PROVIDERS: EMERGENCY PHYSICIAN Emergency Medicine; FAMILY PHYSICIAN Family Medicine
DX: J90 Pleural effusion, not elsewhere classified (principal); R51.9 Headache, unspecified; R11.0 Nausea; R53.83 Other fatigue; J98.11 Atelectasis; I25.10 Atherosclerotic heart disease of native coronary artery without angina pectoris; I10 Essential (primary) hypertension; E78.00 Pure hypercholesterolemia, unspecified; K21.9 Gastro-esophageal reflux disease without esophagitis; I35.0 Nonrheumatic aortic (valve) stenosis; Z85.528 Personal history of other malignant neoplasm of kidney; Z87.891 Personal history of nicotine dependence; Z88.2 Allergy status to sulfonamides; Z88.8 Allergy status to other drugs, medicaments and biological substances; Z79.82 Long term (current) use of aspirin
CPT/HCPCS: 99284; 96374; 71275; 80053; 84484; 85027; 85379; 93005; Q9967

== ENCOUNTER 2025-05-15 06:08 | Day surgery (SDC) | payer OTHER, SELFPAY ==
[2025-05-15 08:19] VITALS: BMI 31.7
[2025-05-15 08:20] VITALS: BP 139/85
[2025-05-15] MEDS: NORMOSOL-R/PLASMALYTE-A 1000 IV (08:27)
[2025-05-15 09:48] VITALS: BP 128/78; BP 139/85
[2025-05-15 10:00] VITALS: BP 128/77
[2025-05-15 10:15] VITALS: BP 101/62
[2025-05-15 10:33] VITALS: BP 139/82
[2025-05-15 10:50] VITALS: BP 156/84
== END 2025-05-15 11:03 | disposition home or self-care (01) ==
LOC: SDS 06:08
PROVIDERS: ATTENDING PHYSICIAN Specialist
DX: N20.0 Calculus of kidney (principal)
CPT/HCPCS: 52356; 74018; 76000; 82365; C1894; C2617

== ENCOUNTER 2025-07-14 06:36 | Inpatient (IN) | payer OTHER, SELFPAY ==
[2025-07-14] VITALS (38 sets, daily range): BP systolic 84–165; BP diastolic 61–117; PULSE 100–103; BMI 32.3; BMI 31.6
[2025-07-14] MEDS: DILAUDID 1 MG IV ×7 (04:19→21:58)
[2025-07-14] MEDS: NSS 1000 IV (04:19)
[2025-07-14 04:20] LABS: Hematocrit 37.5 % (39.0-52.0); Hemoglobin 12.6 g/dL (13.0-18.0); Mean Corp Hgb Conc. 33.6 g/dL (33.0-37.0); Mean Corpuscular Volume 97.9 fL (80.0-94.0); Nucleated Red Blood Cells % 0 % (-); Platelet Count 381 10^3/uL (130-400); Red Cell Dist. Width 13.4 % (11.5-14.5)
[2025-07-14 04:38] LABS: INR 1.09; PT 14.2 Sec (11.4-14.6)
[2025-07-14 04:43] LABS: ALT (SGPT) 28 U/L (0-50); AST (SGOT) 24 U/L (17-59); Albumin 4.2 g/dl (3.5-5.0); Alkaline Phosphatase 121 U/L (38-126); Blood Urea Nitrogen 34 mg/dl (9-20); Calcium 9.8 mg/dl (8.4-10.2); Carbon Dioxide 22 mmol/L (22-30); Chloride 105 mmol/L (98-107); Estimated Creatinine Clearance 50 ml/min; Glucose 150 mg/dl (70-99); Potassium 4.8 mmol/L (3.5-5.1); Sodium 137 mmol/L (135-145); Total Protein 7.2 g/dl (6.3-8.2); eGFR 41.78
--- NOTE | 2025-07-14 05:28 | HPS.HSE ---
Family Physician
-
Family Physician: NOT KNOW UNKNOWN - PT DOES
Chief Complaint
-
Back pain
History of Present Illness
This is an 75-year-old male with past medical history significant for CAD status postcardiac stents, aortic stenosis status post TAVR in September renal calculi, incidental finding of right renal mass status post partial nephrectomy done on June 30
[facility] presenting to the emergency department with severe right-sided flank pain tonight.
He reports sudden onset of right-sided flank pain with associated nausea. He was feeling lightheaded and was hypotensive while waiting in triage. Patient reported having hematuria. He denies any fevers or chills. He has been no vomiting. He
denies any diarrhea. He has been doing well since surgery, until the day of admission.
In the emergency department blood pressure was 120/70 with a pulse rate of 98 and oxygen saturation of 94% on room air.
White count was 13.3 with a hemoglobin of 12.6 and platelet of 380. He is electrolytes are within the normal range. His creatinine is up to 1.7 from baseline of 1.1 cm since before the nephrectomy. Glucose was normal. Lactic acid was 2.4. He
had a CT of the abdomen pelvis showing status post partial right nephrectomy, hematoma superiorly measuring 9.6 x 6.8 x 6.6 cm with active extravasation arising from the superior pole of the right kidney, additional mild to moderate hemoperitoneum
anterior to the liver tracking into the abdomen and pelvis. The left kidney shows nonobstructive kidney stone without hydronephrosis or hydroureter.
Medical History
Past Medical History
Past Medical History: Reports CAD (s/p PCI 2020), Cancer (Right renal mass status post right partial nephrectomy with pathology report pending), GERD, HTN, Hypercholesterolemia, Valvular Disease (Aortic stenosis status post TAVR), Psychiatric
(anxiety) and Other (aortic stenosis)
Past Surgical History: Reports Cardiac (TAVR), Orthopedic and Urological (Right nephrectomy)
Social History
Tobacco: Non-smoker
Alcohol: None
Drug: None
Personal:
Living: With Family
Employment: Employed
Family History
Family History: CAD (father)
Allergies / Home Medications
Allergies reflects when Allergies were last updated in [email or web address].
Home Medications with original date entered in [email or web address]
Allergy/Medication List:
see above
Review of Systems
-
History Source: Patient
A 12 point ROS was completed and negative except as noted: Yes
Constitutional: Reports No Symptoms
EENT: Reports No Symptoms
Respiratory: Reports No Symptoms
Cardiac: Reports No Symptoms
Abdomen/GI: Reports No Symptoms
: Reports Flank Pain and Bleeding
Musculoskeletal: Reports No Symptoms
Skin: Reports No Symptoms
Neurological: Reports No Symptoms
Endocrine: Reports No Symptoms
Hematologic/Lymphatic: Reports No Symptoms
Psych: Reports No Symptoms
Physical Exam
Vital Signs
Vital Signs
Pulse Resp BP Pulse Ox
98 18 123/70 94
07/14/25 05:15 07/14/25 05:15 07/14/25 05:03 07/14/25 05:15
Physical Exam
General: Appears in Distress (Significant distress due to right-sided flank pain)
HEENT: NormoCephalic, Anicteric, Moist mucous membranes and PERRLA; No Oxygen
Respiratory: Clear
Cardiac: S1/S2, Regular Rhythm and Tachycardia
Breast: Deferred by me
GI: Soft and Normal Bowel Sounds
Rectal: Deferred by Provider
Genito-urinary: Deferred by me
Musculoskeletal: No Clubbing, No Cyanosis and No Edema
Skin: Warm
Neuro: AO x 3
Laboratory Results
-
07/14/25 04:10
07/14/25 04:10
Laboratory Results
PT 14.2 Sec (11.4-14.6) 07/14/25 04:10
INR 1.09 07/14/25 04:10
Lactic Acid 2.4 mmol/L (0.7-2.0) H 07/14/25 04:20
Total Bilirubin 0.6 mg/dl (0.2-1.3) 07/14/25 04:10
AST 24 U/L (17-59) 07/14/25 04:10
ALT 28 U/L (0-50) 07/14/25 04:10
Alkaline Phosphatase 121 U/L (38-126) 07/14/25 04:10
Data Reviewed
-
CT Scan: Report Reviewed by me
Lab Data: Labs Reviewed by me
Old Records: Reviewed
Impression/Plan
-
IMPRESSION:
75-year-old with past medical history significant for CAD status post stenting, renal calculi, GERD, sleep apnea, aortic stenosis status post TAVR in September, incidental finding of right renal mass prior to the TAVR patient is now 2 weeks status post
right partial nephrectomy presenting to the emergency department with right-sided flank pain and found to have bleeding coming from the reminiscent of right kidney with hematoma as well as a extravasation arising from the superior pole of the right
kidney.
PLAN:
Spontanous perinephric hematoma from partial nephrectomy, no new trauma. Current extravasation noted. No anticoagulation. Hemodynamically stable.
- admit to icu
- npo
- pain control and antiemetics
- given hemodynamic stability
- IR consult for arteriography and embolization
- urology consultation
- type and screened and consented
- u/a pending
CAD s/p stentin in 2020, TAVR in 10/15
- when tolerating po, continue statin, hold aspirin
- continue ezetimibe when tolerating po
UMANG
- oxygen hs
GERD
- ppi iv for now
Plan to continue tamsulosin and finesteride when tolerating po
DVT PPX - SCDs for now
Code status - Full code
--- NOTE | 2025-07-14 05:30 | ED.GENMED ---
History of Present Illness
General
Chief Complaint: Urinary Symptoms
Source: patient, spouse and physician (Telephone call with patient's urologist. First name Chris)
Exam Limitations: none
Time Seen by Provider: 07/14/25 04:15
Nursing documentation reviewed up to this point in time: agreed with
History of Present Illness
History of Present Illness:
This is a 75-year-old gentleman who underwent partial right nephrectomy at [place], June. Was doing fairly well postoperatively until tonight when he developed severe right flank pain, worsening and unrelieved with pain medications.
He admits to feeling somewhat lightheaded. No fall no injury. He is also noted gross hematuria, 3 episodes early this morning which is new since surgery.
Telephone call to patient's urologist. Significant concern for pseudoaneurysm, acute extravasation from right nephrectomy.
Patient noted to be hypotensive in triage with initial systolic blood pressure of 80. He remains awake and alert, in significant distress related to pain.
Immediately brought to ED room 8. Will plan for urgent CT angiogram abdomen pelvis, IV fluid resuscitation and IV Dilaudid for pain control.
I have also texted IR, Dr. Concepcion. IR aware of patient's presentation. Awaiting CTA result.
Past History
Past History
ED Past Medical History: CAD, GERD, HTN, Hypercholesterolemia, Valvular disease (Aortic stenosis), Psychiatric and Other (Lyme disease; right renal mass status post right partial nephrectomy June 30, 2025)
ED Past Surgical History: Cardiac, Orthopedic and Urological (Right partial nephrectomy June 30, 2025)
Social History
Tobacco: Former smoker
Alcohol: Occasional
Drug: None
Personal:
Living: with family
Employment: Retired
Family History
Family History: Other (Mother with diabetes father with coronary disease and diabetes)
Phy Exam
Physical Exam
Physical Exam:
GENERAL: This is a 75-year-old gentleman who appears his stated age, awake and alert, appears in severe distress related to pain.
EYE: anicteric
NECK: Supple, nontender, no meningismus, no significant adenopathy.
ENT: oral mucosa is moist. No rhinorrhea.
CARDIAC: Regular rate and rhythm. no murmur.
LUNGS: no acute respiratory distress, mildly decreased breath sounds right base.
ABDOMEN: Rotund, soft, nondistended, moderate tenderness right upper to right lateral and right posterior flank region, no r/g,. normoactive BS.
NEUROLOGICAL: Alert and oriented x3, no focal neuro deficits.
SKIN: Warm and dry, mildly pale in color, skin intact. No rash.
MUSCULOSKELETAL: No C/C/E. peripheral pulses are full and equal b/l. No palpable tenderness.
PSYCH: Normal and appropriate interaction.
Course
Orders/Labs/Results
Orders:
Orders
07/14/25 04:06
CT Abd/pelvis Angio W/wo Iv Urgent
Comment:
Reason For Exam: right flank pain/s/p partial nephrectomy
Urinalysis Reflex To Culture Urgent
Date Specimen was Collected: 07/14/25
Time Specimen was Collected: 04:07
07/14/25 04:10
Type+Screen Urgent
Complete Blood Count/With Diff Urgent
Comprehensive Metabolic Panel Urgent
Prothrombin Time Urgent
07/14/25 04:12
HYDROmorphone [Dilaudid] 1 mg .ROUTE .STK-MED ONE
07/14/25 04:16
0.9% Sodium Chloride 1000 ml [Nss] 1,000 ml IV BOLUS
HYDROmorphone [Dilaudid] 1 mg IV NOW STA
07/14/25 04:20
Lactic Acid Urgent
07/14/25 04:46
HYDROmorphone [Dilaudid] 1 mg IV NOW STA
Abnormal Lab Results
07/14/25 07/14/25
04:10 04:20
WBC 13.3 H 10^3/uL
(4.8-10.8)
RBC 3.83 L 10^6/uL
(4.70-6.10)
Hgb 12.6 L g/dL
(13.0-18.0)
Hct 37.5 L %
(39.0-52.0)
MCV 97.9 H fL
(80.0-94.0)
MCH 32.9 H pg
(27.0-31.0)
Abs Immat Gran (auto) 0.1 H 10^3/uL
(0-0.05)
Absolute Neuts (auto) 9.7 H 10^3/uL
(1.4-6.5)
Absolute Monos (auto) 0.9 H 10^3/uL
(0.1-0.6)
Lymphocytes % 17.6 L %
(20.5-51.1)
BUN 34 H mg/dl
(9-20)
Creatinine 1.7 H mg/dL
(0.7-1.3)
Glucose 150 H mg/dl
(70-99)
Lactic Acid 2.4 H mmol/L
(0.7-2.0)
07/14/25 04:10
07/14/25 04:10
Vital Signs
Initial and Last Documented VS:
Initial Vital Signs
Pulse Resp BP Pulse Ox
106 28 86/62 100
07/14/25 03:52 07/14/25 03:52 07/14/25 03:52 07/14/25 03:52
Last Documented Vital Signs
Pulse Resp BP Pulse Ox
98 18 123/70 94
07/14/25 05:15 07/14/25 05:15 07/14/25 05:03 07/14/25 05:15
MDM/Problems Addressed
Differential Diagnosis Includes:
Concern for postoperative bleeding/pseudoaneurysm/retroperitoneal bleeding/sepsis
MDM/Problems Addressed:
Acute/severe right flank pain with hypotension.
Status post partial right nephrectomy June 30.
Significant concern for pseudoaneurysm, acute retroperitoneal bleeding
Stat CTA abdomen pelvis ordered.
IV fluid resuscitation and IV pain medication.
Labs are pending.
*Radiology
Radiology exam reviewed: radiology read reviewed
*Pulse Oximetry
SaO2: 94
Patient hypoxic: no
*Machine Maintenance Interpretation
Rate: normal
Interpretation: normal
Rhythm: sinus
*Critical Care Note
Total Time (30-74mins, 75-104mins- exclusive of procedures): 75
comment:
Critical care statement: A total of 75 minutes of critical care time was provided for this patient. This includes management of unstable vital signs, evaluation of the patient at bedside, reviewing the patient's pertinent medical records, discussion
with consultants, review of old EKGs and review of pertinent medical records. This time with separate from time utilized to perform the aforementioned documented procedures
ED Attending Note
-
Portions of this chart may have been created with voice recognition software.� Occasional wrong word or��sound alike� substitutions may have occurred due to the inherent limitations of voice recognition software.
Discharge Plan
Departure
Patient Disposition: Admit
Date of Disposition: 07/14/25
Time of Disposition: 05:47
Admit to: ICU
Admit to doctor: Tasia
Presentation/result/management discussed w/ accepting MD/DO: Hospitalist
Condition: Serious
Discharge Problem:
Postoperative hemorrhage, Retroperitoneal hematoma
Prescriptions:
No Action
alprazolam 0.25 MG tablet
0.25 mg PO Q8HPRN PRN (Reason: ANXIETY)
Patient Comments:
07/06/2023: last filled 06/27/23, 30 tabs for 10 days from [facility]
pantoprazole 40 MG tablet,delayed release (DR/EC)
40 mg PO DAILY Qty: 30 11RF
Rx Instructions:
Protonix replaces Nexium
aspirin 81 MG tablet,chewable
81 mg PO DAILY Qty: 30 0RF
Rx Instructions:
Reduce aspirin to 81 mg daily
hydrocodone-acetaminophen 5-325 mg tablet
0.5 tab PO TID
Patient Comments:
07/06/2023: last filled 06/12/23, 45 tabs for 30 days from [facility]
mnesswtxof-xpukjhzacbeha-kfgm 50-325-40 mg tablet
1 tab PO Q4H PRN (Reason: headache)
Patient Comments:
07/06/2023: last filled 06/27/23, 30 tabs for 5 days from [facility]
ezetimibe 10 mg tablet
10 mg PO DAILY
vilazodone 20 mg tablet
20 mg PO DAILY@1700
atorvastatin 80 MG tablet
80 mg PO HS
tamsulosin 0.4 mg Capsule
0.4 mg PO QPM
finasteride [Proscar] 5 mg Tablet
5 mg PO DAILY
amoxicillin 500 mg Tablet
2,000 mg PO .PRIORTODENTALVISIT
Referrals:
UNKNOWN - PT DOES,NOT KNOW [Family Provider]
Interventions
Interventions:
*General Assessment Last Done: 07/14/25 04:08
*Neglect/Abuse Screening Last Done: 07/14/25 03:52
*ED COVID-19 Vaccine History Last Done: 07/14/25 04:08
*ED Influenza Vaccine History Last Done: 07/14/25 04:08
[facility] Fall Risk Assessment Tool Last Done: 07/14/25 04:18
*Risk Screen - Suicide (C-SSRS) Last Done: 07/14/25 04:08
ED-Male Genitourinary Assessment Last Done: 07/14/25 04:08
ED-Skin Assessment Last Done: 07/14/25 04:08
Discharge Date and Time
Print Language: THAI
[2025-07-14] MEDS: SUBLIMAZE 25 MCG IV (05:46)
--- NOTE | 2025-07-14 08:50 | W.PN.HOSP.TC ---
Today's Communication/Plan
-
trend Hg
awaiting call back from [facility]
LR
NPO while laying flat post op
Assessment / Plan
Assessment / Plan
IMPRESSION:
75-year-old with past medical history significant for CAD status post stenting, renal calculi, GERD, sleep apnea, aortic stenosis status post TAVR in September, incidental finding of right renal mass prior to the TAVR patient is now 2 weeks status post
right partial nephrectomy presenting to the emergency department with right-sided flank pain and found to have bleeding coming from the reminiscent of right kidney with hematoma as well as a extravasation arising from the superior pole of the right
kidney.
PLAN:
Spontanous perinephric hematoma from partial nephrectomy, no new trauma. Current extravasation noted. No anticoagulation. Hemodynamically stable.
- s/p IR guided embolization early this AM
- admitted to icu
- npo
- pain control and antiemetics
- urology consultation
- type and screened and consented
- per ER, patient's Urologist prefers he is transferred back to [place]- awaiting callb ack
CAD s/p stentin in 2020, TAVR in 10/15
- when tolerating po, continue statin, hold aspirin
- continue ezetimibe when tolerating po
UMANG
- oxygen hs
GERD
- ppi iv for now
Plan to continue tamsulosin and finesteride when tolerating po
DVT PPX - SCDs for now
Code status - Full code
Anticipated Discharge: 24 - 48 hours
Subjective/Interval History
-
Date of Service: July 14, 2025
continues to have pain right flank
laying flat post IR procedure
Objective Data
-
Labs:
Laboratory Results
07/14/25 07/14/25 07/14/25
04:10 07:18 10:30
WBC 13.3 H
Hgb 12.6 L Pending
Hct 37.5 L Pending
Plt Count 381
PT 14.2
INR 1.09
APTT Pending
Sodium 137
Potassium 4.8
Chloride 105
Carbon Dioxide 22
BUN 34 H
Creatinine 1.7 H
Glucose 150 H
Calcium 9.8
Total Bilirubin 0.6
AST 24
ALT 28
Alkaline Phosphatase 121
07/14/25 07/14/25
16:30 22:30
WBC
Hgb Pending Pending
Hct Pending Pending
Plt Count
PT
INR
APTT
Sodium
Potassium
Chloride
Carbon Dioxide
BUN
Creatinine
Glucose
Calcium
Total Bilirubin
AST
ALT
Alkaline Phosphatase
Vital Signs:
Vital Signs
Temp Pulse Resp BP Pulse Ox
98.8 F 105 19 143/85 96
07/14/25 07:57 07/14/25 08:15 07/14/25 08:15 07/14/25 08:15 07/14/25 07:57
I&O
07/13/25 07/14/25 07/15/25
06:59 06:59 06:59
Intake Total 50 / 50
Balance 50 / 50
Review of Systems
-
History Source: Patient
All other systems: Reviewed and negative
Physical Exam
-
General: Other (appears in pain )
HEENT: PERRLA
Respiratory: Clear to Auscultation; Negative Wheezes
Cardiac: Regular Rhythm and S1/S2
GI: Soft and Nontender
Musculoskeletal: No Edema
Skin: Warm and Dry; Negative Rash
Neuro: AO x 3
Psych: Calm
Data Reviewed
-
Diagnostic Radiology: Report Reviewed by me
Labs: Labs Reviewed by me
[2025-07-14 08:53] LABS: Glucose - Point of Care 157 mg/dl (70-99)
[2025-07-14] MEDS: PROTONIX IV 40 MG IV (09:12)
[2025-07-14] MEDS: LR 1000 IV ×2 (09:12→23:01)
--- NOTE | 2025-07-14 10:08 | CONS.URO ---
Consultation
-
Date/Time Consultation Performed: 0900 07/14/25
Performing Provider: Peffer
Reason for Consultation: Bleeding
Medical History
History of Present Illness
75M with hx of BPH, kidney stones, R renal mass
s/p stone procedure 03/[address] Ayala prior to management of R renal mass
Had surgery with Dr. Matos at [facility] 06/30/25 for R partial nephrectomy
Post op course uncomplicated until he developed severe R flank pain
In the ER found to be hypotensive and CT angiogram showed 9cm RP hematoma adjacent to R kidney under liver
Angiogram showed persistent acute bleeding from PN site
Taken by IR for embolization of bleeding vessels
Post procedure is having spasm/pain of RUQ. Mild tachycardia but otherwise stable vitals
Past Medical History: Reports CAD (s/p PCI 2020), R renal mass), GERD, HTN, Hypercholesterolemia, Valvular Disease
Past Surgical History: Reports Cardiac (TAVR), Orthopedic, R partial nephrectomy
Social History
Tobacco: Non-smoker
Personal:
Living: With Family
Family History
Family History: Reviewed & Not Pertinent
Allergies/Home Medications
Allergies
Allergy/AdvReac Type Severity Reaction Status Date / Time
pseudoephedrine (From Allergy dizzy Verified 07/14/25 03:56
Sudafed)
Sulfa (Sulfonamide Allergy Hives Verified 07/14/25 03:56
Antibiotics)
Home Medications
�Medication �Instructions �Recorded �Confirmed �Type
alprazolam 0.25 mg tablet 0.25 mg PO Q8HPRN PRN ANXIETY 09/21/15 07/14/25 History
aspirin 81 mg chewable tablet 81 mg PO DAILY Heart 12/01/20 07/14/25 Rx
disease/condition #30 tabs
pantoprazole 40 mg tablet,delayed 40 mg PO DAILY Gastrointestinal 12/01/20 07/14/25 Rx
release issue #30 tabs
atorvastatin 80 mg tablet 80 mg PO HS High cholesterol 07/06/23 07/14/25 History
swstlysycw-mdjossyvcwtxw-isbncsls 1 tab PO Q4H PRN headache 07/06/23 07/14/25 History
50 mg-325 mg-40 mg tablet
ezetimibe 10 mg tablet 10 mg PO DAILY Hyperlipidemia 07/06/23 07/14/25 History
hydrocodone 5 mg-acetaminophen 325 0.5 tab PO TID PRN Pain 07/06/23 07/14/25 History
mg tablet
vilazodone 20 mg tablet 20 mg PO DAILY@1700 Mental 07/06/23 07/14/25 History
Health/Anxiety
finasteride 5 mg tablet (Proscar) 5 mg PO DAILY 05/14/25 07/14/25 History
tamsulosin 0.4 mg capsule 0.4 mg PO QPM 05/14/25 07/14/25 History
amoxicillin 500 mg tablet 2,000 mg PO .PRIORTODENTALVISIT 05/15/25 07/14/25 History
Physical Exam
Vital Signs
Vital Signs
Temp Pulse Resp BP Pulse Ox
97.4 F 105 18 122/77 94
07/14/25 08:51 07/14/25 10:00 07/14/25 10:00 07/14/25 10:00 07/14/25 10:00
Lab / Testing Results
Laboratory Results
07/14/25 04:10
Physical Exam
General: Well Developed, Well Nourished and Pain
Respiratory: Clear and Non Labored Respirations
GI: Soft and Tender (RUQ)
Genito-urinary: Costovertebral Angle Tend
Neuro: AO x 3
Psych: Calm and Intact Judgement
Assessment / Plan
-
75M admitted with acute renal bleed post op from robotic R partial nephrectomy at [place] 06/30/25
R renal pseudoaneurysm
- Acute bleeding post partial nephrectomy with some bleeding in collecting system/hematuria, 9cm hematoma under liver, active bleed on angiography
- s/p IR for embolization of bleeding vessels
- Trend HGB Q6H
- ICU monitoring
BPH
- continue tamsulosin and finasteride
- Bladder scan 500cc this AM - continue obs for a few hours and repeat attempt to void
- Zarate if not emptying well
--- NOTE | 2025-07-14 10:12 | PTCARENOTE ---
Pt received from IR s/p r femoral access coil embolization of pseudoaneurysm R renal artery. Pt received Dilaudid and fentanyl in Ed and Fentanyl and versed during procedure. Pt resting at times, startles awake with severe spasm to r flank.
Medicated as charted. Blood sugar elevated upon arrival. Dr Caraballo aware and ivf changed. CHG bath completed. Scabbed puncture sites noted to R lower abdomen s/p partial r nephrectomy. Approximated and ecchymotic without drainage. Some healing
bruises noted to r lower back as well. Heels are blanchable. R groin was closed using Mynx device. site soft with bandaid and no s/s of bleeding/hematoma.
[2025-07-14 11:05] LABS: Hematocrit 32.7 % (39.0-52.0); Hemoglobin 10.9 g/dL (13.0-18.0)
[2025-07-14 11:22] LABS: APTT 34.6 Sec (23.4-35.0)
[2025-07-14] MEDS: LIDOCAINE 4% PATCH 1 PATCH TOPICAL (11:27)
[2025-07-14] MEDS: PROSCAR 5 MG PO (11:28)
[2025-07-14] MEDS: TYLENOL 650 MG PO ×2 (11:28→19:48)
--- NOTE | 2025-07-14 11:28 | CON.INTV ---
Consultation
Consultation Request
Date/Time Consultation Requested: 07/14/2025
Date/Time Consultation Performed: 07/14/2025
Requesting Provider: Dr. Dozier
Performing Provider: Dr. Velarde
Reason for Consultation: Renal hemorrhage s/p coiling
Medical History
-
Chief Complaint: Back pain
History of Present Illness:
Mr. Roberson is a 75-year-old male with a past medical history of CAD s/p stents, aortic stenosis s/p TAVR 09/2024, renal calculi, incidental renal mass s/p right partial nephrectomy June 30, 2025 at [place] presenting with right-sided flank pain.
Reports that the pain came on suddenly and was associated with nausea and hematuria. However no chills fevers or vomiting. He has been doing well since his surgery without any issues. In the ED SBP initially in the 80s, pulse 106 RR 28 pulse ox
100, labs showed white count 13.3, Hgb 12.6, lactic acid 2.4, creatinine 1.7 and patient's urologist was contacted who was concern for pseudoaneurysm versus extravasation. Patient was given IV fluids and CT angiogram ordered showed hematoma with
active extravasation. Patient was taken to IR for embolization and admitted to the ICU postprocedure.
Past Medical History
Past Medical History: CAD (S/p PCI 2020), Cancer (Right renal mass s/p partial nephrectomy pathology pending), GERD, HTN, Hypercholesterolemia and Valvular Disease (AAS s/p TAVR 2024)
Past Surgical History: Cardiac (TAVR), Orthopedic and Urological (Right partial nephrectomy June 2025)
Social History
Tobacco: Non-smoker
Alcohol: None
Drug: None
Personal:
Living: With Family
Family History
Family History: Reviewed & Not Pertinent
Allergies / Home Medications
Allergies
Allergy/AdvReac Type Severity Reaction Status Date / Time
pseudoephedrine (From Allergy dizzy Verified 07/14/25 03:56
Sudafed)
Sulfa (Sulfonamide Allergy Hives Verified 07/14/25 03:56
Antibiotics)
Home Medications
�Medication �Instructions �Recorded �Confirmed �Last Taken �Type
alprazolam 0.25 mg tablet 0.25 mg PO Q8HPRN PRN ANXIETY 09/21/15 07/14/25 05/14/25 10:00 History
aspirin 81 mg chewable tablet 81 mg PO DAILY Heart 12/01/20 07/14/25 05/14/25 06:30 Rx
disease/condition #30 tabs
pantoprazole 40 mg tablet,delayed 40 mg PO DAILY Gastrointestinal 12/01/20 07/14/25 05/14/25 06:30 Rx
release issue #30 tabs
atorvastatin 80 mg tablet 80 mg PO HS High cholesterol 07/06/23 07/14/25 05/14/25 21:00 History
wsecjeqfys-dbzjyevpzbuas-hrvfqfog 1 tab PO Q4H PRN headache 07/06/23 07/14/25 07/11/25 History
50 mg-325 mg-40 mg tablet
ezetimibe 10 mg tablet 10 mg PO DAILY Hyperlipidemia 07/06/23 07/14/25 05/14/25 06:30 History
hydrocodone 5 mg-acetaminophen 325 0.5 tab PO TID PRN Pain 07/06/23 07/14/25 05/15/25 00:00 History
mg tablet
vilazodone 20 mg tablet 20 mg PO DAILY@1700 Mental 07/06/23 07/14/25 05/14/25 16:00 History
Health/Anxiety
finasteride 5 mg tablet (Proscar) 5 mg PO DAILY 05/14/25 07/14/25 05/14/25 16:00 History
tamsulosin 0.4 mg capsule 0.4 mg PO QPM 05/14/25 07/14/25 05/14/25 16:00 History
amoxicillin 500 mg tablet 2,000 mg PO .PRIORTODENTALVISIT 05/15/25 07/14/25 05/14/25 History
Review of Systems
-
History Source: Patient and Family
All other systems: Negative unless noted
: Flank Pain
Vitals / Labs / Diagnostic Testing
Vital Signs
Temp Pulse Resp BP Pulse Ox
97.5 F 105 18 122/77 94
07/14/25 11:14 07/14/25 10:00 07/14/25 10:00 07/14/25 10:00 07/14/25 10:00
Laboratory Results
07/14/25 07/14/25
04:10 10:39
PT 14.2
INR 1.09
APTT 34.6
Diagnostic Testing:
Physical Exam
-
HEENT: Normocephalic and Anicteric
Cardiovascular: S1/S2, Regular Rhythm and Other (Tachycardic)
Respiratory: Clear and Non-Labored Respirations
GI: Soft, Non Distended and Non Tender
Neurology: Awake and Alert
Skin: Warm and Dry
General: Pain (Flank)
Assessment
-
Mr. Roberson is a 75-year-old male with a past medical history of CAD s/p stents, aortic stenosis s/p TAVR 09/2024, renal calculi, incidental renal mass s/p right partial nephrectomy June 30, 2025 at [place] presenting with right-sided flank pain.
CT abdomen pelvis notable for hematoma and active extravasation at right kidney.
#Neurologic
Pain: Flank pain
Analgesia: Hyoscyamine as needed, Tylenol as needed Dilaudid as needed, lidocaine patch
Mentation: at baseline AAO x 3
Activity: Bedrest postprocedure
#Cardiovascular
Maintain MAP> 65
Pressors: None
QTc:
Hx CAD s/p stents
Hold aspirin
Hx s/p TAVR
#Respiratory
O2 requirements: None
Home O2: None
Blood gas:
Stable on room air
#Gastrointestinal
Diet: N.p.o.
Stooling regimen:
Tubes: None
Antiemetics: Zofran as needed
GI PPx: Protonix 40 mg daily
Hyperlipidemia
On ezetimibe
On atorvastatin
#Renal
Zarate: no
Urine output:
IVF: LR at 75
Electrolytes: K>4 Mg>2
Na 137
K 4.8
Mag pending
Urology following
Acute renal blood loss due to hematoma of renal mass s/p right partial nephrectomy
June 30, 2025 at [place]
9 cm hematoma with active bleed on CT
No pathology
S/p IR embolization
- Trend H&H
- Pain management
Acute kidney injury
CR 1.7, elevated BUN
baseline 1.0 per chart review 2024
S/p fluid resuscitation in the ED
-IV fluids
-Continue to monitor
#
BPH
Continue tamsulosin
Continue finasteride
#Infectious
WBC 13.3
ABX: Unasyn
Microbiology: COVID-negative, flu negative
Antipyretics:
Leukocytosis
Likely reactive
Continue to monitor
#Hematologic
DVT PPx: SCDs
Hemoglobin: 12.6-> 10.9
PT
INR
PTT
Acute blood loss anemia due to hematoma s/p right partial nephrectomy
Trend H&H
If concern for bleeding possible CT abdomen/IR procedure
Urology on board
#Endocrine
Maintain euglycemia with goal BG 140�180
# Psych
ALYSE
Continue vilazodone
Continue Xanax
#Surgical
S/p right partial nephrectomy no pathology
Urology following
#Access
Central:
None
Peripheral:
Left arm cephalic 18-gauge
Left median cephalic 20-gauge
CODE STATUS: Full code
[2025-07-14] MEDS: LEVSIN 0.125 MG PO ×3 (11:51→19:49)
--- NOTE | 2025-07-14 12:08 | PTCARENOTE ---
Zarate catheter placed without difficulty per Dr Shine once aware of bladder scan results. Pt tried to use urinal twice since arrival to unit without success. 650ml return of urine once placed. Pt reported having difficulty since surgery.
[2025-07-14 12:28] LABS: Blood Urea Nitrogen 30 mg/dl (9-20); Calcium 9.3 mg/dl (8.4-10.2); Carbon Dioxide 21 mmol/L (22-30); Chloride 108 mmol/L (98-107); Estimated Creatinine Clearance 70 ml/min; Glucose 143 mg/dl (70-99); Potassium 5.0 mmol/L (3.5-5.1); Sodium 135 mmol/L (135-145); eGFR > 60.00
[2025-07-14 12:33] LABS: Urine Character Slightly Cloudy (Clear)
[2025-07-14 12:47] LABS: Urine Red Blood Cell >100 /HPF (0-2)
--- NOTE | 2025-07-14 12:48 | W.PN.UPDATE ---
Update Note
Progress Note Update
Patient having difficulty voiding post procedure with >500cc bladder scan
Recommend 18Fr price placement
Follow up urine culture - possible infection given nit + urine
[2025-07-14 13:07] LABS: Magnesium 2.1 mg/dl (1.6-2.3)
[2025-07-14 16:56] LABS: Hematocrit 32.9 % (39.0-52.0); Hemoglobin 10.9 g/dL (13.0-18.0)
[2025-07-14] MEDS: NON-FORMULARY ITEM 20 MG PO (16:56)
--- NOTE | 2025-07-14 17:07 | PTCARENOTE ---
Pt slept for a couple of hours and woke up screaming with a flank spasm and '10/10 pain'. Medicated as charted. Pt repositioned in bed. Requested anxiety medicine prior to leaving room. Asked pt what he was anxious about and he said he could
feel the pain would be coming. Pt reported liking music. I heart radio put on, ice pack provided for neck pain at pt request (chronic from home) and warm blankets applied. and son at bedside. Pt currently resting. Repeat hgb drawn as
ordered and unchanged.
--- NOTE | 2025-07-14 17:22 | W.PN.SURGUPD ---
Surgical Update
Surgical Update
Hgb stable at 10.9
Patient anxious but stable
Hematuria has resolved
Right flank ecchymosis dependently, as expected
---
Will notify Dr. James
Follow Hgb
[2025-07-14] MEDS: XANAX 0.25 MG PO (17:38)
[2025-07-14] MEDS: MIRALAX 17 GRAMS PO (18:23)
[2025-07-14] MEDS: FLOMAX 0.4 MG PO (18:23)
--- NOTE | 2025-07-14 19:50 | PTCARENOTE ---
Rec'd pt resting in bed, needs a lot of enc to be turned- instructed on importance of turning, anxious, has evere R flank spasms, tylenol 650mg po, dilaudid 1mg iv & levsin 0.125mg po given, SR/ ST, bp stable, + pulses, R groin site intact, RA,
lungs decr in bases, sat 96, + bowel sounds, no bm, abd obese, soft, no n/v, poor appetite, price draining norma urine
[2025-07-14 21:57] LABS: Hematocrit 29.5 % (39.0-52.0); Hemoglobin 10.0 g/dL (13.0-18.0)
[2025-07-14] MEDS: LIPITOR 80 MG PO (21:58)
--- NOTE | 2025-07-14 22:00 | PTCARENOTE ---
dilaudid 1mg iv given for pain
[2025-07-14] MEDS: REMOVE LIDOCAINE PATCH 1 PATCH REMOVE (22:03)
--- NOTE | 2025-07-14 23:02 | PTCARENOTE ---
when sleeping desat to 87 w/ apnea, placed on cpap 8 by resp therapist
[2025-07-15] VITALS (16 sets, daily range): BP systolic 104–145; BP diastolic 55–90; PULSE 81–99; BMI 31.8
--- NOTE | 2025-07-15 00:45 | PTCARENOTE ---
dilaudid 1mg iv given for pain, levsin 0.125 mg po given for spasms, CHG bath done, linens changed
[2025-07-15] MEDS: LEVSIN 0.125 MG PO ×5 (00:46→20:52)
[2025-07-15] MEDS: DILAUDID 1 MG IV ×3 (00:46→05:50)
[2025-07-15 03:47] LABS: Blood Urea Nitrogen 27 mg/dl (9-20); Calcium 9.3 mg/dl (8.4-10.2); Carbon Dioxide 27 mmol/L (22-30); Chloride 105 mmol/L (98-107); Estimated Creatinine Clearance 84 ml/min; Glucose 110 mg/dl (70-99); Sodium 136 mmol/L (135-145); eGFR > 60.00
[2025-07-15 03:53] LABS: Potassium 4.4 mmol/L (3.5-5.1)
[2025-07-15] MEDS: TYLENOL 650 MG PO ×2 (03:58→09:54)
--- NOTE | 2025-07-15 04:08 | PTCARENOTE ---
sys reviewed, tylenol 650 mg po & Dilaudid 1mg iv given for pain
[2025-07-15 04:20] LABS: Hematocrit 30.3 % (39.0-52.0); Hemoglobin 10.2 g/dL (13.0-18.0); Mean Corp Hgb Conc. 33.7 g/dL (33.0-37.0); Mean Corpuscular Volume 98.7 fL (80.0-94.0); Platelet Count 256 10^3/uL (130-400); Red Cell Dist. Width 13.8 % (11.5-14.5)
--- NOTE | 2025-07-15 05:51 | PTCARENOTE ---
levsin 0.125 mg po given for spasms, dilaudid 1mg iv given for pain
--- NOTE | 2025-07-15 08:17 | W.PN.HOSP.TC ---
Today's Communication/Plan
-
see plan
Assessment / Plan
Assessment / Plan
IMPRESSION:
75-year-old with past medical history significant for CAD status post stenting, renal calculi, GERD, sleep apnea, aortic stenosis status post TAVR in September, incidental finding of right renal mass prior to the TAVR patient is now 2 weeks status post
right partial nephrectomy presenting to the emergency department with right-sided flank pain and found to have bleeding coming from the reminiscent of right kidney with hematoma as well as a extravasation arising from the superior pole of the right
kidney.
PLAN:
Spontanous perinephric hematoma from partial nephrectomy
- s/p IR guided embolization morning of 07/14
- admitted to ICU post-op
-Hg now stable overnight
-start oral oxy for pain control, IV dilaudid PRN breakthrough
-s/p price for urinary retention post-op
-appreciate Urology, follow up further recommendations
CAD s/p stenting in 2020, TAVR in 10/15
- statin resumed, hold aspirin
- continue ezetimibe when tolerating po
UMANG
- oxygen hs
GERD
-HEARING AND SPEECH ASSISTANT PPI
Constipation
-constipation post nephrectomy
-resume home regimen, patient receiving opiates again
BPH
-HEARING AND SPEECH ASSISTANT Flomax, Finasteride
DVT PPX - SCDs for now
Code status - Full code
Anticipated Discharge: 24 - 48 hours
Subjective/Interval History
-
Date of Service: July 15, 2025
feeling better today
slept okay
levsin helping spasms
Objective Data
-
Labs:
Laboratory Results
07/14/25 07/15/25 07/15/25
21:49 03:10 03:10
WBC 8.5
Hgb 10.0 L Cancelled 10.2 L
Hct 29.5 L Cancelled
Plt Count
Sodium
Potassium
Chloride
Carbon Dioxide
BUN
Creatinine
Glucose
Calcium
07/15/25
03:10
WBC
Hgb
Hct 30.3 L
Plt Count 256 D
Sodium 136
Potassium 4.4
Chloride 105
Carbon Dioxide 27
BUN 27 H
Creatinine 1.0
Glucose 110 H
Calcium 9.3
Vital Signs:
Vital Signs
Temp Pulse Resp BP Pulse Ox
98.1 F 83 14 139/72 91
07/15/25 04:00 07/15/25 06:00 07/15/25 06:00 07/15/25 06:00 07/15/25 05:00
I&O
07/14/25 07/15/25 07/16/25
06:59 06:59 06:59
Intake Total 0 / 2109
Output Total 1725 / 1725
Balance 385 / 385
Review of Systems
-
History Source: Patient
All other systems: Reviewed and negative
Physical Exam
-
General: No Apparent Distress
HEENT: PERRLA
Respiratory: Clear to Auscultation; Negative Wheezes
Cardiac: Regular Rhythm and S1/S2
GI: Soft and Nontender
Musculoskeletal: No Edema
Skin: Warm and Dry; Negative Rash
Neuro: AO x 3
Psych: Calm
Data Reviewed
-
Diagnostic Radiology: Report Reviewed by me
Labs: Labs Reviewed by me
[2025-07-15] MEDS: ROXICODONE 5 MG PO ×3 (08:44→17:01)
[2025-07-15] MEDS: LIDOCAINE 4% PATCH 1 PATCH TOPICAL (08:46)
[2025-07-15] MEDS: MIRALAX 17 GRAMS PO (08:46)
[2025-07-15] MEDS: ZETIA 10 MG PO (08:47)
[2025-07-15] MEDS: PROSCAR 5 MG PO (08:47)
[2025-07-15] MEDS: PROTONIX 40 MG PO (08:47)
[2025-07-15] MEDS: SENOKOT-S 1 TABLET PO ×2 (08:47→20:47)
--- NOTE | 2025-07-15 09:00 | W.PN.INTV ---
Today's Communication / Plan
Recommendations
Hgb stable
DC IV fluids
Pain control
Downgrade from ICU
Assessment
-
Mr. Roberson is a 75-year-old male with a past medical history of CAD s/p stents, aortic stenosis s/p TAVR 09/2024, renal calculi, incidental renal mass s/p right partial nephrectomy June 30, 2025 at [place] presenting with right-sided flank pain.
CT abdomen pelvis notable for hematoma and active extravasation at right kidney.
#Neurologic
Pain: Flank pain
Analgesia: Hyoscyamine as needed, Tylenol as needed Dilaudid as needed, lidocaine patch, oxycodone 10, 5 as needed
Mentation: at baseline AAO x 3
Activity: With assistance
#Cardiovascular
Maintain MAP> 65
Pressors: None
QTc: 423
Hx CAD s/p stents
Hold aspirin
Hx s/p TAVR
#Respiratory
O2 requirements: None
Home O2: None
Blood gas:
Stable on room air
#Gastrointestinal
Diet: Regular
Stooling regimen:
Tubes: None
Antiemetics: Zofran as needed
GI PPx: Protonix 40 mg daily
Hyperlipidemia
On ezetimibe
On atorvastatin
#Renal
Zarate: Yes
Urine output: About 100 mL/h
IVF: DC LR
Electrolytes: K>4 Mg>2
Na 136
K 4.4
Mag 2.1
Urology following
Acute renal blood loss due to hematoma of renal mass s/p right partial nephrectomy
June 30, 2025 at [place]
9 cm hematoma with active bleed on CT
No pathology
S/p IR embolization
Hgb stable around 10.2
- Trend H&H
- Pain management
Acute kidney injury, resolved
CR 1.7, elevated BUN
baseline 1.0 per chart review 2024
S/p fluid resuscitation in the ED
-IV fluids
-Continue to monitor
CR 1.0
#
BPH
Continue tamsulosin
Continue finasteride
#Infectious
WBC 13.3-> 8.5
ABX: None
Microbiology: COVID-negative, flu negative
Antipyretics:
Leukocytosis
Likely reactive
Continue to monitor
#Hematologic
DVT PPx: SCDs
Hemoglobin: 12.6-> 10.9-> 10.2
PT
INR
PTT
Acute blood loss anemia due to hematoma s/p right partial nephrectomy
Hgb stable
Trend H&H
If concern for bleeding possible CT abdomen/IR procedure
Urology on board
#Endocrine
Maintain euglycemia with goal BG 140�180
# Psych
ALYSE
Continue vilazodone
Continue Xanax
#Surgical
S/p right partial nephrectomy no pathology
Urology following
#Access
Central:
None
Peripheral:
Left arm cephalic 18-gauge
Left median cephalic 20-gauge
CODE STATUS: Full code
Subjective Dataa
Subjective Data
Date of Service:
Saw patient at bedside with family. Reports that flank pain has been doing significantly better. Patient reports no shortness of breath chest pain nausea vomiting abdominal pain. Date of Service: July 15, 2025
Review of Systems
Genitourinary: Zarate and Other (Flank pain)
Objective Data
Data Reviewed
Vital Signs / I&O / Oxygen:
Vital Signs
Temp Pulse Resp BP Pulse Ox
97.9 F 83 14 139/72 91
07/15/25 08:00 07/15/25 06:00 07/15/25 06:00 07/15/25 06:00 07/15/25 05:00
Intake and Output
07/14/25 07/15/25 07/16/25
06:59 06:59 06:59
Intake Total 2109
Output Total 1725 / 172
Balance 385 / 385
SaO2 91
Physical Exam
General: Comfortable
HEENT: Normocephalic and Anicteric
Cardiovascular: S1-S2 and Regular Rhythm
Respiratory: Clear and Non-Labored Respirations
GI: Soft, Non Distended, Tender (RLQ tenderness with ecchymosis, incision sites CDI) and Normal Bowel Sounds
Neurology: Awake and Alert
Skin: Warm and Dry
Labs/Micro/Reports
Lab Data
07/15/25 03:10
07/15/25 03:10
Laboratory Results
07/14/25
10:39
APTT 34.6
[2025-07-15] MEDS: PROTONIX IV IV (09:22)
--- NOTE | 2025-07-15 10:20 | CM ---
Chart reviewed and spoke with pt and at ICU bedside
TAVR 09/2024 at [place]
Lives with 2 SH 2 [facility]
Independent with all ADLs
no DME
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
PCP Mariza Escobar
[facility]
hx of VN but does not remember name of agency
no hx of SNF
DCP is to go home
Cm will follow up with dcp needs
--- NOTE | 2025-07-15 11:23 | PTCARENOTE ---
pt downgraded to m/s assisted oob to chair with standby assist after medicated for pain/spasm as charted. once up in chair, pt had requested to go to br where he passed gas. no stool as yet. price removed once back in chair without difficulty.
tolerated well. at bedside.
--- NOTE | 2025-07-15 13:09 | PTCARENOTE ---
Pt being transferred to 2101. Report given to Debora White who will assume care of pt upon transfer. Pt given pain medicince prior to transfer with volunteer. Belongings from room packed and sent with pt. called and was made aware of new room.
[2025-07-15] MEDS: TYLENOL 1000 MG PO (16:58)
[2025-07-15] MEDS: NON-FORMULARY ITEM 20 MG PO (16:59)
[2025-07-15] MEDS: FLOMAX 0.4 MG PO (17:27)
[2025-07-15 18:44] LABS: Hemoglobin 10.2 g/dL (13.0-18.0)
[2025-07-15] MEDS: LIPITOR 80 MG PO (20:47)
[2025-07-15] MEDS: REMOVE LIDOCAINE PATCH 1 PATCH REMOVE (20:47)
[2025-07-15] MEDS: ROXICODONE 10 MG PO (20:52)
[2025-07-16] MEDS: TYLENOL 1000 MG PO ×2 (00:45→08:52)
[2025-07-16] MEDS: ROXICODONE 10 MG PO ×2 (00:48→06:10)
[2025-07-16] MEDS: LEVSIN 0.125 MG PO ×2 (00:48→06:10)
[2025-07-16 06:13] LABS: Hematocrit 30.2 % (39.0-52.0); Hemoglobin 10.2 g/dL (13.0-18.0); Mean Corp Hgb Conc. 33.8 g/dL (33.0-37.0); Mean Corpuscular Volume 97.1 fL (80.0-94.0); Platelet Count 265 10^3/uL (130-400); Red Cell Dist. Width 13.5 % (11.5-14.5)
[2025-07-16 06:36] LABS: Blood Urea Nitrogen 29 mg/dl (9-20); Calcium 10.0 mg/dl (8.4-10.2); Carbon Dioxide 27 mmol/L (22-30); Chloride 103 mmol/L (98-107); Estimated Creatinine Clearance 70 ml/min; Glucose 117 mg/dl (70-99); Potassium 4.5 mmol/L (3.5-5.1); Sodium 134 mmol/L (135-145); eGFR > 60.00
[2025-07-16 07:45] VITALS: BP 155/83
[2025-07-16] MEDS: ZETIA 10 MG PO (08:51)
[2025-07-16] MEDS: SENOKOT-S 1 TABLET PO (08:51)
[2025-07-16] MEDS: PROSCAR 5 MG PO (08:52)
[2025-07-16] MEDS: PROTONIX 40 MG PO (08:52)
[2025-07-16] MEDS: LIDOCAINE 4% PATCH 1 PATCH TOPICAL (08:52)
[2025-07-16] MEDS: MIRALAX 17 GRAMS PO (08:53)
--- NOTE | 2025-07-16 09:07 | W.PN.HOSP.TC ---
Today's Communication/Plan
-
Ok for DC today
Assessment / Plan
Assessment / Plan
IMPRESSION:
75-year-old with past medical history significant for CAD status post stenting, renal calculi, GERD, sleep apnea, aortic stenosis status post TAVR in September, incidental finding of right renal mass prior to the TAVR patient is now 2 weeks status post
right partial nephrectomy presenting to the emergency department with right-sided flank pain and found to have bleeding coming from the reminiscent of right kidney with hematoma as well as a extravasation arising from the superior pole of the right
kidney.
PLAN:
Spontanous perinephric hematoma from partial nephrectomy
- s/p IR guided embolization morning of 07/14
-Hg now stable, did not require transfusion or pressors
-still requiring Oxycodone for pain control - DC on 15 pills; patient sees pain management as outpatient
-s/p price for retention post-op - now out and patient voiding on his own
CAD s/p stenting in 2020, TAVR in 10/15
- statin resumed, confirming with Urology when OK to resume aspirin
UMANG
- oxygen hs
GERD
-CORE MOUNTER PPI
Constipation
-constipation post nephrectomy
-patient having BM
BPH
-CORE MOUNTER Flomax, Finasteride
DVT PPX - SCDs for now
Code status - Full code
Anticipated Discharge: Today
Subjective/Interval History
-
Date of Service: July 16, 2025
he is feeling well
wants to go home
had a BM
Objective Data
-
Labs:
Laboratory Results
07/16/25
05:48
WBC 10.2
Hgb 10.2 L
Hct 30.2 L
Plt Count 265
Sodium 134 L
Potassium 4.5
Chloride 103
Carbon Dioxide 27
BUN 29 H
Creatinine 1.2
Glucose 117 H
Calcium 10.0
Vital Signs:
Vital Signs
Temp Pulse Resp BP Pulse Ox
98.2 F 99 16 155/83 95
07/16/25 07:45 07/16/25 07:45 07/16/25 07:45 07/16/25 07:45 07/16/25 07:45
I&O
07/15/25 07/16/25 07/17/25
06:59 06:59 06:59
Intake Total 2110 / 2180 740 / 740
Output Total 1725 / 1725 700 / 700
Balance 385 / 455 40 / 40
Review of Systems
-
History Source: Patient
All other systems: Reviewed and negative
Physical Exam
-
General: No Apparent Distress
HEENT: PERRLA
Respiratory: Clear to Auscultation; Negative Wheezes
Cardiac: Regular Rhythm and S1/S2
GI: Soft and Nontender
Musculoskeletal: No Edema
Skin: Warm and Dry; Negative Rash
Neuro: AO x 3
Psych: Calm
Data Reviewed
-
Diagnostic Radiology: Report Reviewed by me
Labs: Labs Reviewed by me
--- NOTE | 2025-07-16 09:38 | W.DS.TRANS ---
DC Summary - Car Cleaner
-
Discharge Instructions:
Discharge Diagnosis/Procedures recent partial nephrectomy on right;
retroperitoneal hematoma status post
embolization of bleeding vessel
Diet Regular
Activity As tolerated
Driving Restrictions As prior to admission
Bathing Restrictions None
Instructions:
Stand-Alone Forms:
Changes to Home Medications: Yes
Discharge Medications:
DC Medications w/original date entered in [facility]
alprazolam 0.25 mg tablet 0.25 mg PO Q8HPRN PRN ANXIETY 09/21/15
aspirin 81 mg chewable tablet 81 mg PO DAILY Heart disease/condition #30 tabs 12/01/20
Held on 07/16/25. Instructions: Resume on 07/18/25.
pantoprazole 40 mg tablet,delayed release 40 mg PO DAILY Gastrointestinal issue #30 tabs 12/01/20
atorvastatin 80 mg tablet 80 mg PO HS High cholesterol 07/06/23
duyvavxugg-ahrtraypnyraa-filrdqtw 50 mg-325 mg-40 mg tablet 1 tab PO Q4H PRN headache 07/06/23
ezetimibe 10 mg tablet 10 mg PO DAILY Hyperlipidemia 07/06/23
hydrocodone 5 mg-acetaminophen 325 mg tablet 0.5 tab PO TID PRN Pain 07/06/23
vilazodone 20 mg tablet 20 mg PO DAILY@1700 Mental Health/Anxiety 07/06/23
finasteride 5 mg tablet (Proscar) 5 mg PO DAILY Urinary Issue 05/14/25
tamsulosin 0.4 mg capsule 0.4 mg PO QPM Urinary Issue 05/14/25
amoxicillin 500 mg tablet 2,000 mg PO .PRIORTODENTALVISIT 05/15/25
polyethylene glycol 3350 17 gram oral powder packet 17 g PO DAILY Constipation 07/14/25
sennosides 8.6 mg-docusate sodium 50 mg tablet (Senna with Docusate Sodium) 1 tab-cap PO BID Constipation 07/14/25
hyoscyamine sulfate 0.125 mg sublingual tablet 0.125 mg PO Q4HPRN PRN SPASMS #30 tabs 07/16/25
lidocaine 4 % topical patch 1 patch topical DAILY #10 ea 07/16/25
oxycodone 5 mg tablet 5 mg PO Q4HPRN PRN severe pain #15 tabs 07/16/25
Home Medication Changes
HOLD ASPIRIN, OK to resume on Monday if no bleeding in urine.
You may take additional Tylenol for mild pain (do not take more than 1G per dose or more than 4G per 24 hours).
You are prescribed 15 pills of Oxycodone to treat severe pain. Follow up with your pain management doctor as planned.
You are prescribed Levsin to help with spasms.
Pending Results: No
--- NOTE | 2025-07-16 10:26 | CM ---
Patient is for OR this afternoon,then home. OBS letter completed and placed on chart.
Plan; Home when stable.
[2025-07-16 11:02] VITALS: BP 134/72
--- NOTE | 2025-07-16 12:39 | W.DCSUMMARY ---
Discharge Summary
Discharge Data
Date of Admission: 07/14/25
Date of Discharge: 07/16/25
-
Pending Results: No
Hospital Course
Discharging Physician : Dr. Gely Caraballo
Disposition : Home
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
Hospital Course :
Mr. 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
In the emergency department blood pressure was 120/70 with a pulse rate of 98 and oxygen saturation of 94% on room air.
WBC 13.3 , Hg 12.6. His creatinine was up to 1.7 from baseline of 1.1 cm since before the nephrectomy. He had a CT of the abdomen pelvis showing status post partial right nephrectomy, hematoma superiorly measuring 9.6 x 6.8 x 6.6 cm with active
extravasation arising from the superior pole of the right kidney. IR was urgently consulted and he is status post embolization of bleeding vessel.
Patient was admitted to the ICU. He did not require vasopressors or transfusion. Hg remained stable over 10. Post-op course complicated by continued pain from hematoma, which was much improved by HD 1. He is eating and drinking well, constipation
treated.
Zarate placed for retention that was discontinued after 24 hours and patient is now voiding on his own.
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
Time spent on discharge was 35 minutes.
Important imaging findings :
Abdomen/Pelvis CT
IMPRESSION:
1. Active bleeding from the upper pole of the right kidney, with adjacent hematoma measuring 9.2 x 8.2 x 7.3 cm. Small amount of intraperitoneal hemorrhage adjacent to the liver, and tracking into the pelvis.
2. Ulcerated plaque and mild ectasia of the abdominal aorta. Abdominal aorta measures 2.5 cm in greatest orthogonal dimension.
3. Left-sided nephrolithiasis without hydronephrosis.
CXR 07/15
IMPRESSION:
No acute cardiopulmonary process.
Procedure findings :
Discharge Plan
-
Patient Disposition: Home (Routine Discharge)
Discharge Diagnosis/Procedures: recent partial nephrectomy on right; retroperitoneal hematoma status post embolization of bleeding vessel
Diet: Regular
Activity: As tolerated
Driving Restrictions: As prior to admission
Bathing Restrictions: None
Referrals:
UNKNOWN - PT DOES,NOT KNOW [Family Provider] - in less than 1 week
Additional Discharge Medication Instructions: HOLD ASPIRIN, OK to resume on Monday if no bleeding in urine.
You may take additional Tylenol for mild pain (do not take more than 1G per dose or more than 4G per 24 hours).
You are prescribed 15 pills of Oxycodone to treat severe pain. Follow up with your pain management doctor as planned.
You are prescribed Levsin to help with spasms.
Prescriptions:
New
hyoscyamine sulfate 0.125 mg Tablet, Sublingual
0.125 mg PO Q4HPRN PRN (Reason: SPASMS) Qty: 30 0RF
lidocaine 4 % Adhesive Patch,Medicated
1 patch topical DAILY Qty: 10 0RF
oxycodone 5 mg Tablet
5 mg PO Q4HPRN PRN (Reason: severe pain) Qty: 15 0RF
Continued
alprazolam 0.25 MG tablet
0.25 mg PO Q8HPRN PRN (Reason: ANXIETY)
Patient Comments:
07/06/2023: last filled 06/27/23, 30 tabs for 10 days from [facility]
pantoprazole 40 MG tablet,delayed release (DR/EC)
40 mg PO DAILY Qty: 30 11RF
Rx Instructions:
Protonix replaces Nexium
hydrocodone-acetaminophen 5-325 mg tablet
0.5 tab PO TID PRN (Reason: Pain)
Patient Comments:
07/06/2023: last filled 06/12/23, 45 tabs for 30 days from [facility]
mjthkmklis-jmjahkcmyiwdz-fnoa 50-325-40 mg tablet
1 tab PO Q4H PRN (Reason: headache)
Patient Comments:
07/06/2023: last filled 06/27/23, 30 tabs for 5 days from [facility]
ezetimibe 10 mg tablet
10 mg PO DAILY
vilazodone 20 mg tablet
20 mg PO DAILY@1700
atorvastatin 80 MG tablet
80 mg PO HS
tamsulosin 0.4 mg Capsule
0.4 mg PO QPM
finasteride [Proscar] 5 mg Tablet
5 mg PO DAILY
amoxicillin 500 mg Tablet
2,000 mg PO .PRIORTODENTALVISIT
polyethylene glycol 3350 17 gram Powder In Packet
17 g PO DAILY
sennosides-docusate sodium [Senna with Docusate Sodium] 8.6-50 mg Tablet
1 tab-cap PO BID
Held
aspirin 81 MG tablet,chewable
81 mg PO DAILY Qty: 30 0RF
Hold Instructions: Resume on 07/18/25.
Rx Instructions:
Reduce aspirin to 81 mg daily
Discharge Orders:
Discharge Patient (As Directed); Ordered 07/16/25
Ordered By: Gely Caraballo
Discharge Date and Time
Discharge Date/Time: 07/16/25 11:21
Print Language: DJIBOUTIAN
== END 2025-07-16 11:21 | disposition home or self-care (01) | DRG 907 ==
LOC: 2 SOUTH 06:36
PROVIDERS: Radiology Diagnostic Radiology; ADMITTING PHYSICIAN Internal Medicine; ATTENDING PHYSICIAN Student in an Organized Health Care Education/Training Program; CONSULT PHYSICIAN Urology; EMERGENCY PHYSICIAN Emergency Medicine; OTHER PHYSICIAN Internal Medicine Critical Care Medicine
PROC: 04L93DZ Occlusion of Right Renal Artery with Intraluminal Device, Percutaneous Approach (ICD-10-PCS; 2025-07-14)
DX: N99.840 Postprocedural hematoma of a genitourinary system organ or structure following a genitourinary system procedure (principal); K66.1 Hemoperitoneum; K68.3 Retroperitoneal hematoma; I25.10 Atherosclerotic heart disease of native coronary artery without angina pectoris; K21.9 Gastro-esophageal reflux disease without esophagitis; Z90.5 Acquired absence of kidney; Z95.2 Presence of prosthetic heart valve; Z95.5 Presence of coronary angioplasty implant and graft; K59.00 Constipation, unspecified; R33.8 Other retention of urine; N40.0 Benign prostatic hyperplasia without lower urinary tract symptoms; Z82.49 Family history of ischemic heart disease and other diseases of the circulatory system; Z87.891 Personal history of nicotine dependence; Z87.442 Personal history of urinary calculi; G47.33 Obstructive sleep apnea (adult) (pediatric); E78.00 Pure hypercholesterolemia, unspecified; I10 Essential (primary) hypertension; Z79.82 Long term (current) use of aspirin; Z79.899 Other long term (current) drug therapy; Z83.3 Family history of diabetes mellitus; Y83.6 Removal of other organ (partial) (total) as the cause of abnormal reaction of the patient, or of later complication, without mention of misadventure at the time of the procedure
CPT/HCPCS: 36253; 37244; 71045; 74174; 75726; 76937; 80048; 80053; 81003; 81015; 82962; 83605; 83735; 84100; 85014; 85018; 85025; 85027; 85610; 85730; 86850; 86900; 86901; 87086; 93005; 94660; 96361; 96374; 96375; 96376; 99152; 99153; 99291; C1769; Q9967